=== PATIENT | female | born 1980 | race Caucasian/White ===

== ENCOUNTER 2017-10-11 03:46 | Emergency (ER) | payer SELFPAY ==
[~2017-10-11] VITALS: Ht 160 cm; Wt 74.8 kg
[2017-10-11 04:05] VITALS: BP 117/69
[2017-10-11] MEDS ORDERED: IBUPROFEN 600 MG TABLET. PO ONE ×2 (04:30→04:41)
--- NOTE | 2017-10-11 04:48 | PHYS DOC ---
Past History Past Medical History: Asthma Past Surgical History: Cholecystectomy, Other Alcohol Use: None Drug Use: None Adult General Chief Complaint Chief Complaint: FOOT INJURY PAIN HPI HPI Patient is a 36 year old female who presents with foot pain. The patient states she was moving furniture earlier tonight & dropped a couch on her left foot, now has pain in smallest toe. She has pain with weightbearing. No other injuries. Did not take medication prior to arrival. Review of Systems Review of Systems Constitutional: Denies fever or chills Respiratory: Denies shortness of breath Cardiovascular: Denies chest pain Musculoskeletal: Reports toe pain Integument: Denies rash Neurologic: Denies headache All other systems were reviewed and found to be within normal limits, except as documented in this note. Current Medications Current Medications Current Medications Medications (Trade) Dose Ordered Sig/Barbara Start Time Stop Time Status Last Admin Dose Admin Ibuprofen (Motrin) 600 mg 1X ONCE 10/11/17 04:30 10/11/17 04:31 UNV Allergies Allergies Allergies Coded Allergies Type Severity Reaction Last Updated Verified Penicillins Allergy Intermediate 04/10/16 Yes codeine Adverse Reaction Intermediate 04/10/16 Yes Physical Exam Physical Exam Constitutional: Well developed, well nourished, no acute distress, non-toxic appearance. HENT: Normocephalic, atraumatic, bilateral external ears normal, oropharynx moist, nose normal. Eyes: conjunctiva normal, no discharge. Cardiovascular: no edema. Lungs & Thorax: no respiratory distress. Abdomen: nondistended. Skin: Warm, dry, no erythema, no rash. Extremities: left foot no swelling or deformity, tenderness with palpation of 5th toe, otherwise no foot or ankle tenderness, normal ROM to ankle & able to move toes, dp/pt 2+, sensation intact to foot Neurologic: Alert and oriented X 3 EKG EKG [] Radiology/Procedures Radiology/Procedures XR L foot, 3 views: interpreted by me: no fracture or dislocation, no acute process.[] Course & Med Decision Making Course & Med Decision Making Pertinent Labs and Imaging studies reviewed. (See chart for details) The patient presents with toe injury. Gave ibuprofen. X-ray shows no fracture. Recommend rest, ice, elevation, ibuprofen. Follow up as needed with primary care. Come back for neurovascular compromise or otherwise worsening condition. Discharged home in stable condition. [] Dragon Disclaimer Dragon Disclaimer This electronic medical record was generated, in whole or in part, using a voice recognition dictation system. Departure Departure: Impression: Primary Impression: Toe contusion Disposition: 01 HOME, SELF-CARE Condition: STABLE Referrals: PCP,NO (PCP) Patient Instructions: Crush Injury, Fingers or Toes, [id number] Additional Instructions: You were seen in the emergency department today for toe injury. You did not have a fracture on x-ray. This appears to be bruising. Please rest, ice, elevate, take ibuprofen. Follow up with primary care physician for additional concerns. Problem Qualifiers Primary Impression: Toe contusion Encounter type: initial encounter Toe: lesser toe Damage to nail status: without damage Laterality: left Qualified Codes: S90.122A - Contusion of left lesser toe(s) without damage to nail, initial encounter FREDDY GUTIERREZ MD Oct 11, 2017 04:48
--- NOTE | 2017-10-11 07:55 | RAD ---
3 views left foot 10/11/2017 6:23 AM Indication: couch fell on toes, pain Comparison: None Findings: There is no fracture or dislocation identified. Articular surfaces are uninterrupted. Soft tissues are unremarkable. Impression: No evidence of acute osseous abnormality
== END 2017-10-11 04:53 | disposition home or self-care (01) ==
LOC: ER 03:46
DX: S90.122A Contusion of left lesser toe(s) without damage to nail, initial encounter (principal); J45.909 Unspecified asthma, uncomplicated; Z88.0 Allergy status to penicillin; Z88.5 Allergy status to narcotic agent; W20.8XXA Other cause of strike by thrown, projected or falling object, initial encounter; Y93.89 Activity, other specified; Y99.8 Other external cause status; Y92.89 Other specified places as the place of occurrence of the external cause
CPT/HCPCS: 73630; 99284

== ENCOUNTER 2017-10-20 13:04 | Emergency (ER) | payer SELFPAY ==
[~2017-10-20] VITALS: Ht 160 cm; Wt 79.0 kg
[2017-10-20 13:12] VITALS: BP 115/66
--- NOTE | 2017-10-20 14:32 | ED.ADGEN ---
Past History Past Medical History: Anxiety Past Surgical History: Cholecystectomy, , Hysterectomy Alcohol Use: Occasionally Drug Use: None Adult General Chief Complaint Chief Complaint Left hip pain HPI HPI Patient is a 36-year-old female presents with nontraumatic left hip pain for 1 week. Patient works as [employer] and is on her feet all day. She reports frequent lifting and bending. Also reports low back pain. No motor weakness or loss of sensation. No loss of bowel or bladder function. No history of kidney stones. Hip pain is worse with palpation and ambulation and rotation. No medications or therapy's taken prior to ED arrival. She has not seen a primary care provider prior to symptoms today.[] Review of Systems Review of Systems ROS as per HPI [] All other systems were reviewed and found to be within normal limits, except as documented in this note. Allergies Allergies Allergies Coded Allergies Type Severity Reaction Last Updated Verified Penicillins Allergy Intermediate 04/10/16 Yes codeine Adverse Reaction Intermediate 04/10/16 Yes Physical Exam Physical Exam Constitutional: Well developed, well nourished, no acute distress, non-toxic appearance. [] HENT: Normocephalic, atraumatic, bilateral external ears normal, oropharynx moist, no oral exudates, nose normal. [] Eyes: PERRLA, EOMI, conjunctiva normal, no discharge. [] Neck: Normal range of motion, no tenderness, supple, no stridor. [] Cardiovascular:Heart rate regular rhythm, no murmur [] Lungs & Thorax: Bilateral breath sounds clear to auscultation [] Abdomen: Bowel sounds normal, soft, no tenderness.(] Extremities: Left hip, lateral tenderness, pain palpation range of motion. No bruising or swelling appreciated. Antalgic gait. [] Neurologic: Alert and oriented X 3, lower extremities, no motor weakness or loss of sensation. [] Psychologic: Affect normal, judgement normal, mood normal. [] Current Patient Data Vital Signs Vital Signs Date Time Temp Pulse Resp B/P (MAP) Pulse Ox O2 Delivery O2 Flow Rate FiO2 10/20/17 13:12 98.3 64 16 100 Room Air EKG EKG [] Radiology/Procedures Radiology/Procedures [] Course & Med Decision Making Course & Med Decision Making Pertinent Labs and Imaging studies reviewed. (See chart for details) [Non-traumatic hip pain without neurologic compromise. Suspect bursitis. Recommend supportive care and PCP follow up. ] Final Impression Final Impression [1. Left hip pain] Problems: Meet Disclaimer Meet Disclaimer This electronic medical record was generated, in whole or in part, using a voice recognition dictation system. NIXON KNOTT DO Oct 20, 2017 14:32
== END 2017-10-20 13:45 | disposition home or self-care (01) ==
LOC: ER 13:04
DX: M25.552 Pain in left hip (principal); M54.5 Low back pain; F41.9 Anxiety disorder, unspecified; Z90.49 Acquired absence of other specified parts of digestive tract; Z98.890 Other specified postprocedural states; Z90.710 Acquired absence of both cervix and uterus; Z88.0 Allergy status to penicillin; Z88.5 Allergy status to narcotic agent
CPT/HCPCS: 99281

== ENCOUNTER 2018-02-25 06:10 | Emergency (ER) | payer OTHER ==
[~2018-02-25] VITALS: Ht 160 cm; Wt 79.0 kg
[2018-02-25 06:10] VITALS: BP 122/76
[2018-02-25] MEDS: HYDROcodone/APAP 5/325MG 1 TAB TABLET PO ONE (06:36)
[2018-02-25] MEDS ORDERED: TRAM-48 PO (06:59)
--- NOTE | 2018-02-25 06:59 | PHYS DOC ---
Past History Past Medical History: Anxiety Past Surgical History: Cholecystectomy, , Hysterectomy Smoking: Cigarettes Alcohol Use: Occasionally Drug Use: Marijuana Adult General Chief Complaint Chief Complaint: finger injury, headache HPI HPI 37-year-old right-handed female patient states she injured her left fifth finger last night when smacking her nephew and jammed her finger. Patient states she has more pain and ecchymosis and swelling of her finger this morning with informed range of motion. Patient denies focal neuro deficit and other injuries. Patient also complaining of global headache the last 5 days as a constant pain with nausea and photophobia without history of migraine headache. Patient states she took [id number] headache pain medication without improvement of her headache. Patient denies focal neuro deficit, fever and chills, neck pain, history of head injury or hypertension. Review of Systems Review of Systems Constitutional: Denies fever or chills [] Eyes: Denies change in visual acuity, redness, or eye pain , reports photophobia [] HENT: Denies nasal congestion or sore throat [] Respiratory: Denies cough or shortness of breath [] Cardiovascular: No additional information not addressed in HPI [] GI: Denies abdominal pain, vomiting, bloody stools or diarrhea , reports nausea [] : Denies dysuria or hematuria [] Musculoskeletal: Denies back pain, reports joint pain [] Integument: Denies rash or skin lesions [] Neurologic: Reports headache, denies focal weakness or sensory changes [] Endocrine: Denies polyuria or polydipsia [] All other systems were reviewed and found to be within normal limits, except as documented in this note. Current Medications Current Medications Current Medications Medications (Trade) Dose Ordered Sig/Barbara Start Time Stop Time Status Last Admin Dose Admin Acetaminophen/ Hydrocodone Bitart (Lortab 5/325) 1 tab 1X ONCE 02/25/18 06:45 02/25/18 06:46 DC 02/25/18 06:36 1 TAB Allergies Allergies Allergies Coded Allergies Type Severity Reaction Last Updated Verified Penicillins Allergy Intermediate 04/10/16 Yes codeine Adverse Reaction Intermediate 04/10/16 Yes Physical Exam Physical Exam Constitutional: Well developed, well nourished, mild distress, non-toxic appearance. [] HENT: Normocephalic, atraumatic, bilateral external ears normal, oropharynx moist, no oral exudates, nose normal. [] Eyes: PERRLA, EOMI, conjunctiva normal, no discharge. [] Neck: Normal range of motion, no tenderness, supple, no stridor. [] Cardiovascular:Heart rate regular rhythm, no murmur [] Lungs & Thorax: Bilateral breath sounds clear to auscultation [] Abdomen: Bowel sounds normal, soft, no tenderness, no masses, no pulsatile masses. [] Skin: Warm, dry, no erythema, no rash. [] Back: No tenderness, no CVA tenderness. [] Extremities: Left fifth finger with contusion and edema and tenderness without deformity or neurovascular deficit Neurologic: Alert and oriented X 3, normal motor function, normal sensory function, no focal deficits noted. [] Psychologic: Affect normal, judgement normal, mood normal. [] Current Patient Data Vital Signs Vital Signs Date Time Temp Pulse Resp B/P (MAP) Pulse Ox O2 Delivery O2 Flow Rate FiO2 02/25/18 06:36 20 98 Room Air 02/25/18 06:10 97.8 82 EKG EKG [] Radiology/Procedures Radiology/Procedures [] [place] [address] IMAGING REPORT Signed PATIENT: KWAME KAPLAN ACCOUNT: [id number] : 1980 LOCATION: ER AGE: 37 SEX: F EXAM [id number] STATUS: DEP ER ORD. PHYSICIAN: ALEJO FULLER MD REASON: fifth finger injury PROCEDURE: FINGER(S) LEFT; HAND LEFT 3V Left little finger, 3 views, 02/25/2018: History: Injury No fracture or dislocation is identified. The soft tissues are unremarkable. IMPRESSION: No significant abnormality is detected. Left hand, 3 views, 02/25/2018: No fracture or dislocation is identified. The soft tissues are unremarkable. IMPRESSION: No acute left hand abnormality is detected. DICTATED AND SIGNED BY: JUDE RAMÍREZ MD DATE: 02/25/18 0704 CC: ALEJO FULLER MD; PCP,NO ~ Course & Med Decision Making Course & Med Decision Making Pertinent Imaging studies reviewed. (See chart for details) Laceration of patient in ER showed 37-year-old female patient with injury to left finger with contusion of finger without fracture x-ray. Patient also complaining of headache with unremarkable neuro exam. Patient had [place] with improvement of her condition. Aluminium foam splint was applied by ER nurse. Dragon Disclaimer Dragon Disclaimer This electronic medical record was generated, in whole or in part, using a voice recognition dictation system. Departure Departure: Impression: Primary Impression: Contusion of finger, left Additional Impression: Headache Disposition: HOME, SELF-CARE (At 0658) Condition: IMPROVED Referrals: PCP,NO (PCP) Patient Instructions: Contusion, General Headache Without Cause Additional Instructions: Drink plenty of liquids Follow-up with your primary care physician in 3-5 days Return to ER if not getting better Scripts Tramadol Hcl (ULTRAM) 50 Mg Tablet 50 MG PO PRN Q6HRS Y for PAIN for 14 Days, TAB Prov: ALEJO FULLER MD 02/25/18 Problem Qualifiers ALEJO FULLER MD Feb 25, 2018 06:59
--- NOTE | 2018-02-25 07:09 | RAD ---
Left little finger, 3 views, 02/25/2018: History: Injury No fracture or dislocation is identified. The soft tissues are unremarkable. IMPRESSION: No significant abnormality is detected. Left hand, 3 views, 02/25/2018: No fracture or dislocation is identified. The soft tissues are unremarkable. IMPRESSION: No acute left hand abnormality is detected.
== END 2018-02-25 07:01 | disposition home or self-care (01) ==
LOC: ER 06:10
DX: S60.052A Contusion of left little finger without damage to nail, initial encounter (principal); R51 Headache; F41.9 Anxiety disorder, unspecified; F17.210 Nicotine dependence, cigarettes, uncomplicated; F12.10 Cannabis abuse, uncomplicated; Z88.0 Allergy status to penicillin; Z88.5 Allergy status to narcotic agent; W23.0XXA Caught, crushed, jammed, or pinched between moving objects, initial encounter; Y93.89 Activity, other specified; Y99.8 Other external cause status; Y92.89 Other specified places as the place of occurrence of the external cause
CPT/HCPCS: 29130; 73130; 73140; 99284

== ENCOUNTER 2018-05-01 22:03 | Emergency (ER) | payer OTHER ==
[~2018-05-01] VITALS: Ht 160 cm; Wt 79.0 kg
[2018-05-01 22:03] VITALS: BP 116/67
[~2018-05-01 22:03] MED LIST: TRAM-48 PO
[2018-05-01] MEDS ORDERED: PERM60CR11 TP (22:16)
--- NOTE | 2018-05-01 22:17 | PHYS DOC ---
Past History Past Medical History: Anxiety Past Surgical History: Cholecystectomy, , Hysterectomy Smoking: Cigarettes Alcohol Use: Occasionally Drug Use: Marijuana Adult General Chief Complaint Chief Complaint: SKIN RASH/ABSCESS HPI HPI 37-year-old female presents with round papular type rash that is itchy on her legs and trunk. She states is been ongoing for the last few days. He also has a similar rash.[] Review of Systems Review of Systems Review of systems is as above otherwise unremarkable Allergies Allergies Allergies Coded Allergies Type Severity Reaction Last Updated Verified Penicillins Allergy Intermediate 04/10/16 Yes codeine Adverse Reaction Intermediate 04/10/16 Yes Physical Exam Physical Exam Constitutional: Well developed, well nourished, no acute distress, non-toxic appearance. [] HENT: Normocephalic, atraumatic, bilateral external ears normal, oropharynx moist, no oral exudates, nose normal. [] Abdomen: Bowel sounds normal, soft, no tenderness, no masses, no pulsatile masses. [] Skin: Small linear papular rash consistent with scabies on his leg and trunk. [ ] Back: No tenderness, no CVA tenderness. [] Extremities: No tenderness, no cyanosis, no clubbing, ROM intact, no edema. [] Neurologic: Alert and oriented X 3, normal motor function, normal sensory function, no focal deficits noted. [] Psychologic: Affect normal, judgement normal, mood normal. [] EKG EKG [] Radiology/Procedures Radiology/Procedures [] Course & Med Decision Making Course & Med Decision Making Pertinent Labs and Imaging studies reviewed. (See chart for details) [] Dragon Disclaimer Dragon Disclaimer This electronic medical record was generated, in whole or in part, using a voice recognition dictation system. Departure Departure: Impression: Primary Impression: Scabies Disposition: HOME, SELF-CARE Condition: STABLE Referrals: PCP,NO (PCP) Patient Instructions: Scabies Scripts Permethrin (ELIMITE) 60 Gm Cream..g. 60 GM TP 1X, #1 EACH Prov: SUSHILA JOSHI DO 05/01/18 SUSHILA JOSHI DO May 01, 2018 22:17
== END 2018-05-01 22:21 | disposition home or self-care (01) ==
LOC: ER 22:03
DX: B86 Scabies (principal); F17.210 Nicotine dependence, cigarettes, uncomplicated; Z88.0 Allergy status to penicillin; Z88.5 Allergy status to narcotic agent
CPT/HCPCS: 99282

== ENCOUNTER 2018-07-13 09:53 | Emergency (ER) | payer OTHER ==
[~2018-07-13] VITALS: Ht 160 cm; Wt 79.0 kg
[~2018-07-13 09:53] MED LIST changes: +PERM60CR11 TP
[2018-07-13 09:57] VITALS: BP 109/62
--- NOTE | 2018-07-13 10:18 | EKG ---
[address] [address] Test Date: 2018-07-13 Test Time: 10:16:48 Pat Name: KWAME KAPLAN Department: Room: Gender: F Gut Dropper: : 1980 Requested By: RICKIE WHITE Order Number: [id number] Reading MD: Nate Gar MD Measurements Intervals Dana Rate: 78 P: 34 MT: 158 QRS: 44 QRSD: 76 T: 36 QT: 376 QTc: 432 Interpretive Statements SINUS RHYTHM Electronically Signed On 07-14-2018 10:06:26 CDT by Nate Gar MD
[2018-07-13] MEDS ORDERED: CYCLOBENZAPRINE 10 MG TABLET. PO ONE (10:45)
[2018-07-13] MEDS ORDERED: IBUPROFEN 400 MG TABLET. PO ONE (10:45)
--- NOTE | 2018-07-13 10:56 | RAD ---
CT cervical spine without contrast: Reason for examination: Neck pain for one day with right arm numbness. No known injury. Helical images were obtained through the cervical spine from skull base through the thoracic apices with no contrast administered. Reconstruction was performed in sagittal and coronal plane. Exposure: One or more of the following individualized dose reduction techniques were utilized for this examination: 1. Automated exposure control 2. Adjustment of the mA and/or kV according to patient size 3. Use of iterative reconstruction technique. The C1 ring is intact. The odontoid process is intact and normally centered between the lateral masses of C1. The vertebral bodies of the cervical spine are normally aligned anteriorly and posteriorly. No acute fracture or subluxation is seen. The posterior elements are intact. The intervertebral discs are maintained. Prevertebral soft tissues are normal. No spinal stenosis is evident. IMPRESSION: No abnormality seen in the cervical spine. If clinical concern persists, MRI examination should be considered. Electronically signed by: Shauna Gudino MD (07/13/2018 10:53 AM) [facility]
--- NOTE | 2018-07-13 11:07 | PHYS DOC ---
Past History Past Medical History: Asthma Past Surgical History: Cholecystectomy, , Hysterectomy, Tubal ligation Smoking: Cigarettes Alcohol Use: Rarely Drug Use: Marijuana Adult General Chief Complaint Chief Complaint: Neck Pain [facility] HPI Patient is a 37 year old female who presents with complaint of lower neck pain with radiation of pain and numbness to the right arm including all 4 for index fingers but sparing the thumb. Patient states it started at 4:30 this morning and denies any trauma. Patient denies any headache, chest pain shortness of breath. Patient also says she has some muscular tension and pain in the upper back area. Patient denies coughing or any prodromal viral illness. Patient has no other acute complaints at this time. Review of Systems Review of Systems Constitutional: Denies fever or chills [] Eyes: Denies change in visual acuity, redness, or eye pain [] HENT: Denies nasal congestion or sore throat []positive for neck pain Respiratory: Denies cough or shortness of breath [] Cardiovascular: No additional information not addressed in HPI [] GI: Denies abdominal pain, nausea, vomiting, bloody stools or diarrhea [] : Denies dysuria or hematuria [] Musculoskeletal: Denies back pain or joint pain [] Integument: Denies rash or skin lesions [] Neurologic: Denies headache, focal weakness positive for right arm and finger sensory changes [] Endocrine: Denies polyuria or polydipsia [] All other systems were reviewed and found to be within normal limits, except as documented in this note. Current Medications Current Medications Current Medications Medications (Trade) Dose Ordered Sig/Barbara Start Time Stop Time Status Last Admin Dose Admin Cyclobenzaprine HCl (Flexeril) 10 mg 1X ONCE 07/13/18 10:45 07/13/18 10:46 DC 07/13/18 10:34 10 MG Ibuprofen (Motrin) 800 mg 1X ONCE 07/13/18 10:45 07/13/18 10:46 DC 07/13/18 10:34 800 MG Allergies Allergies Allergies Coded Allergies Type Severity Reaction Last Updated Verified Penicillins Allergy Intermediate 04/10/16 Yes tramadol Allergy Unknown 07/13/18 Yes codeine Adverse Reaction Intermediate 04/10/16 Yes Physical Exam Physical Exam Constitutional: Well developed, well nourished, no acute distress, non-toxic appearance. [] HENT: Normocephalic, atraumatic, bilateral external ears normal, oropharynx moist, no oral exudates, nose normal. [] Eyes: PERRLA, EOMI, conjunctiva normal, no discharge. [] Neck: Normal range of motion, no tenderness, supple, no stridor. [] Cardiovascular:Heart rate regular rhythm, no murmur [] Lungs & Thorax: Bilateral breath sounds clear to auscultation [] Abdomen: Bowel sounds normal, soft, no tenderness, no masses, no pulsatile masses. [] Skin: Warm, dry, no erythema, no rash. [] Back: No tenderness, no CVA tenderness. [] Extremities: No tenderness, no cyanosis, no clubbing, ROM intact, no edema. [] Neurologic: Alert and oriented X 3, normal motor function, normal sensory function, no focal deficits noted. [] Psychologic: Affect normal, judgement normal, mood normal. [] Current Patient Data Vital Signs Vital Signs Date Time Temp Pulse Resp B/P (MAP) Pulse Ox O2 Delivery O2 Flow Rate FiO2 07/13/18 09:57 98.1 84 16 93 Room Air EKG EKG NSR at 78[] Radiology/Procedures Radiology/Procedures [address] [address] IMAGING REPORT Signed PATIENT: KWAME KAPLAN ACCOUNT: [id number] : 1980 LOCATION: ER AGE: 37 SEX: F EXAM STATUS: PRE ER ORD. PHYSICIAN: RICKIE WHITE MD REASON: pain PROCEDURE: CT CERVICAL SPINE WO CONTRAST CT cervical spine without contrast: Reason for examination: Neck pain for one day with right arm numbness. No known injury. Helical images were obtained through the cervical spine from skull base through the thoracic apices with no contrast administered. Reconstruction was performed in sagittal and coronal plane. Exposure: One or more of the following individualized dose reduction techniques were utilized for this examination: 1. Automated exposure control 2. Adjustment of the mA and/or kV according to patient size 3. Use of iterative reconstruction technique. The C1 ring is intact. The odontoid process is intact and normally centered between the lateral masses of C1. The vertebral bodies of the cervical spine are normally aligned anteriorly and posteriorly. No acute fracture or subluxation is seen. The posterior elements are intact. The intervertebral discs are maintained. Prevertebral soft tissues are normal. No spinal stenosis is evident. IMPRESSION: No abnormality seen in the cervical spine. If clinical concern persists, MRI examination should be considered. Electronically signed by: Shauna Palma MD (07/13/2018 10:53 AM) [facility] DICTATED AND SIGNED BY: SHAUNA PALMA MD DATE: 07/13/18 1046 CC: RICKIE WHITE MD; KAVITHA KING MD ~ [] Course & Med Decision Making Course & Med Decision Making Pertinent Labs and Imaging studies reviewed. (See chart for details) [] Dragon Disclaimer Dragon Disclaimer This electronic medical record was generated, in whole or in part, using a voice recognition dictation system. Departure Departure: Impression: Primary Impression: Neck pain Additional Impressions: Neuropathy Musculoskeletal pain Disposition: HOME, SELF-CARE Condition: STABLE Referrals: KAVITHA KING MD (PCP) Scripts Ibuprofen (IBUPROFEN) 800 Mg Tablet 1 TAB PO TID, #30 TAB Prov: RICKIE WHITE MD 07/13/18 Problem Qualifiers RICKIE WHITE MD Jul 13, 2018 11:07
[2018-07-13] MEDS ORDERED: IBUP800T19 PO (11:09)
== END 2018-07-13 11:18 | disposition home or self-care (01) ==
LOC: ER 09:53
DX: M54.2 Cervicalgia (principal); M54.6 Pain in thoracic spine; G62.9 Polyneuropathy, unspecified; J45.909 Unspecified asthma, uncomplicated; F17.210 Nicotine dependence, cigarettes, uncomplicated; Z90.49 Acquired absence of other specified parts of digestive tract; Z90.89 Acquired absence of other organs; Z98.51 Tubal ligation status; Z98.890 Other specified postprocedural states; Z88.0 Allergy status to penicillin; Z88.6 Allergy status to analgesic agent; Z88.5 Allergy status to narcotic agent
CPT/HCPCS: 72125; 93005; 99284-25

== ENCOUNTER 2018-08-23 22:43 | Emergency (ER) | payer OTHER ==
[~2018-08-23] VITALS: Ht 160 cm; Wt 72.6 kg
[~2018-08-23 22:43] MED LIST changes: +IBUP800T19 PO
--- NOTE | 2018-08-23 22:52 | ED.ADGEN ---
Past History Past Medical History: Asthma Past Surgical History: Cholecystectomy, , Hysterectomy, Tubal ligation Smoking: Cigarettes Alcohol Use: Rarely Drug Use: Marijuana Adult General Chief Complaint Chief Complaint ". I been sick about as long as my sister...coughing.. I ve even cut down on my smoking..." HPI HPI Patient is a 37 year old female who presents with above hx and complaints of wheezing and coughing. Recently exposed to sister who was diagnosed with bronchitis. No recent travel or sick. No history immunosuppression. Patient does smoke marijuana and tobacco. Normally follows with Dr. Phillips. Review of Systems Review of Systems Constitutional: Denies fever or chills [] Eyes: Denies change in visual acuity, redness, or eye pain [] HENT: Denies nasal congestion or sore throat [] Respiratory: History of cough and wheezing Cardiovascular: No additional information not addressed in HPI [] GI: Denies abdominal pain, nausea, vomiting, bloody stools or diarrhea [] : Denies dysuria or hematuria [] Musculoskeletal: Denies back pain or joint pain [] Integument: Denies rash or skin lesions [] Neurologic: Denies headache, focal weakness or sensory changes [] Endocrine: Denies polyuria or polydipsia [] All other systems were reviewed and found to be within normal limits, except as documented in this note. Family History Family History Sr. recently diagnosed with bronchitis Current Medications Current Medications Current Medications Medications (Trade) Dose Ordered Sig/Barbara Start Time Stop Time Status Last Admin Dose Admin Albuterol Sulfate (Ventolin Hfa Inhaler) 2 puff 1X ONCE 08/23/18 23:30 08/23/18 23:32 DC 08/23/18 23:41 2 PUFF Azithromycin (Zithromax) 500 mg 1X ONCE 08/23/18 23:45 08/23/18 23:46 DC 08/23/18 23:40 500 MG Prednisone (Prednisone) 60 mg 1X ONCE 08/23/18 23:30 08/23/18 23:32 DC 08/23/18 23:41 60 MG Allergies Allergies Allergies Coded Allergies Type Severity Reaction Last Updated Verified Penicillins Allergy Intermediate 04/10/16 Yes tramadol Allergy Unknown 07/13/18 Yes codeine Adverse Reaction Intermediate 04/10/16 Yes Physical Exam Physical Exam Constitutional: Mild distress, non-toxic appearance. [] HENT: Normocephalic, atraumatic, bilateral external ears normal, oropharynx moist, no oral exudates, nose normal. [] Eyes: PERRLA, EOMI, conjunctiva normal, no discharge. [] Neck: Normal range of motion, no tenderness, supple, no stridor. [] Cardiovascular:Heart rate regular rhythm, no murmur [] Lungs & Thorax: Bilateral breath sounds at apexes scattered wheezes auscultation [] Abdomen: Bowel sounds normal, soft, no tenderness, no masses, no pulsatile masses. Obese. Old surgery scars. Skin: Warm, dry, no erythema, no rash. [] Back: No tenderness, no CVA tenderness. [] Extremities: No tenderness, no cyanosis, no clubbing, ROM intact, no edema. [] No cording appreciated Neurologic: Alert and oriented X 3, normal motor function, normal sensory function, no focal deficits noted. [] Psychologic: Affect normal, judgement normal, mood normal. [] Current Patient Data Vital Signs Vital Signs Date Time Temp Pulse Resp B/P (MAP) Pulse Ox O2 Delivery O2 Flow Rate FiO2 08/23/18 23:02 98.4 83 16 96 Room Air Lab Results Laboratory Tests Test 08/23/18 22:50 Urine Collection Type Unknown Urine Color Yellow Urine Clarity Hazy Urine pH 6.5 Urine Specific [place] 1.010 Urine Protein Neg (NEG-TRACE) Urine Glucose (UA) Neg mg/dL (NEG) Urine Ketones (Stick) Neg mg/dL (NEG) Urine Blood Neg (NEG) Urine Nitrite Pos (NEG) Urine Bilirubin Neg (NEG) Urine Urobilinogen Dipstick 0.2 mg/dL (0.2 mg/dL) Urine Leukocyte Esterase Neg (NEG) Urine RBC 0 /HPF (0-2) Urine WBC Occ /HPF (0-4) Urine Squamous Epithelial Cells Many /LPF Urine Bacteria Many /HPF (0-FEW) Urine Opiates Screen Neg (NEG) Urine Methadone Screen Neg (NEG) Urine Barbiturates Neg (NEG) Urine Phencyclidine Screen Neg (NEG) Urine Amphetamine/Methamphetamine Neg (NEG) Urine Benzodiazepines Screen Neg (NEG) Urine Cocaine Screen Neg (NEG) Urine Cannabinoids Screen Pos (NEG) Urine Ethyl Alcohol Neg (NEG) EKG EKG [] Radiology/Procedures Radiology/Procedures My interpretation chest x-ray shows no acute cardiopulmonary findings.[] Course & Med Decision Making Course & Med Decision Making Pertinent Labs and Imaging studies reviewed. (See chart for details). Patient uses MDI 2 puffs 4 times a day. Patient take prednisone 50 mg a day. Patient to take Zithromax 250 a day. Patient to stop smoking. Patient follow-up primary care. Benadryl 50 mg up 4 times day may be helpful for coughing and nasal drainage [] Final Impression Final Impression 1. Bronchitis- 2. Tobacco and marijuana use [] Dragon Disclaimer Dragon Disclaimer This electronic medical record was generated, in whole or in part, using a voice recognition dictation system. SONALI HAZEL MD Aug 23, 2018 22:52
[2018-08-23 23:02] VITALS: BP 161/93
[2018-08-23] MEDS ORDERED: ALBUTEROL SULFATE 8GM INHALER. INH ONE (23:30)
[2018-08-23] MEDS ORDERED: predniSONE 20 MG TABLET PO ONE (23:30)
[2018-08-23 23:37] LABS: BARBITURATES NEG (NEG); BENZODIAZEPINES NEG (NEG); CANNABINOIDS POS (NEG); COCAINE NEG (NEG); METHADONE NEG (NEG); OPIATES NEG (NEG); PHENCYCLIDINE NEG (NEG)
[2018-08-23 23:38] LABS: BACTERIA,URINE MANY /HPF (0-FEW); BILIRUBIN,URINE NEG (NEG); CLARITY,URINE HAZY; COLOR,URINE YELLOW; GLUCOSE,URINE NEG (NEG); NITRITE,URINE POS (NEG); RBC,URINE 0 /HPF (0-2); SQUAMOUS EPITHELIAL CELL,UR MANY /LPF; UROBILINOGEN,URINE 0.2 mg/dL (0.2 mg/dL); WBC,URINE OCC /HPF (0-4)
[2018-08-23 23:40] LABS: AMPHETAMINE/METHAMPHETAMINE NEG (NEG)
[2018-08-23] MEDS ORDERED: PRED50TA PO (23:40)
[2018-08-23] MEDS ORDERED: AZIT250T PO (23:40)
[2018-08-23] MEDS ORDERED: AZITHROMYCIN 250 MG TABLET. PO ONE (23:45)
--- NOTE | 2018-08-24 08:37 | RAD ---
Chest, PA and Lateral: Technique: PA and lateral views of the chest were obtained. History: Cough, chest pain. Comparison: None. Findings: The heart and pulmonary vasculature appear within normal limits. Minimal prominent appearing bilateral interstitial lung markings.. The pleural margins are clear. Impression: Minimal prominent appearing bilateral interstitial lung markings could be mild bronchitis.. Electronically signed by: Theron Rod MD (08/24/2018 8:33 AM) [facility]
== END 2018-08-23 23:45 | disposition home or self-care (01) ==
LOC: ER 22:43
DX: J40 Bronchitis, not specified as acute or chronic (principal); F17.210 Nicotine dependence, cigarettes, uncomplicated; F12.10 Cannabis abuse, uncomplicated; J45.909 Unspecified asthma, uncomplicated; Z88.0 Allergy status to penicillin; Z88.6 Allergy status to analgesic agent; Z88.5 Allergy status to narcotic agent
CPT/HCPCS: 36415; 71046; 80307; 81001; 87086; 94640; 99285; J0456; J7512; J7613; G0479

== ENCOUNTER → 2018-09-02 | Outpatient (CLI) | payer OTHER ==
[2018-08-23 23:02] VITALS: BP 161/93
[~2018-09-02] MED LIST changes: +AZIT250T PO; +PRED50TA PO
--- NOTE | 2018-09-02 16:50 | RAD ---
EXAM: CHEST 2 VIEWS. HISTORY: Cough, shortness of breath. COMPARISON: 08/23/2018. FINDINGS: Frontal and lateral views of the chest are obtained. There are no confluent infiltrates. There is no pneumothorax or pleural effusion. The heart is not enlarged. Cholecystectomy clips are noted. IMPRESSION: 1. No confluent infiltrates. Electronically signed by: Terri Hebert MD (09/02/2018 4:47 PM) [facility]
== END | disposition home or self-care (01) ==
LOC: DXRAD 14:30
PROVIDERS: ATTEND Neuromusculoskeletal Medicine & OMM
DX: J44.1 Chronic obstructive pulmonary disease with (acute) exacerbation (principal); F17.200 Nicotine dependence, unspecified, uncomplicated; F12.90 Cannabis use, unspecified, uncomplicated
CPT/HCPCS: 71046

== ENCOUNTER 2019-07-26 23:31 | Emergency (ER) | payer SELFPAY ==
[~2019-07-26] VITALS: Ht 160 cm; Wt 79.0 kg
[2019-07-26 23:33] VITALS: BP 115/75
[2019-07-27] MEDS ORDERED: METO10TA81 PO (00:10)
[2019-07-27] MEDS ORDERED: MELO7.5T29 PO (00:10)
[2019-07-27] MEDS ORDERED: CLIN150C14 PO (00:10)
--- NOTE | 2019-07-27 00:10 | PHYS DOC ---
Past History Past Medical History: Asthma Past Surgical History: Cholecystectomy, , Hysterectomy Smoking: Cigarettes Alcohol Use: Rarely Drug Use: Marijuana Adult General Chief Complaint Chief Complaint: FACE PAIN HPI HPI Patient is a 38-year-old female presents complaining of right lower jaw pain for the past 3 days. It has been getting worse over time. No relief with Tylenol with codeine that she took prior to arrival. Also no relief with THC. Both hot and cold make it worse. Some subjective fever, no fever recorded at home. Symptoms are severe in nature[] Review of Systems Review of Systems Constitutional: Denies fever or chills [] Eyes: Denies change in visual acuity, redness, or eye pain [] HENT: Denies nasal congestion or sore throat, see history of present illness [] Respiratory: Denies cough or shortness of breath [] Cardiovascular: No chest pain or palpitations[] GI: Denies abdominal pain, nausea, vomiting, bloody stools or diarrhea [] : Denies dysuria or hematuria [] Musculoskeletal: Denies back pain or joint pain [] Integument: Denies rash or skin lesions [] Neurologic: Denies headache, focal weakness or sensory changes [] Endocrine: Denies polyuria or polydipsia [] All other systems were reviewed and found to be within normal limits, except as documented in this note. Current Medications Current Medications Current Medications Medications (Trade) Dose Ordered Sig/Barbara Start Time Stop Time Status Last Admin Dose Admin Clindamycin HCl (Cleocin) 300 mg 1X ONCE 07/27/19 00:15 07/27/19 00:16 Ketorolac Tromethamine (Toradol 30mg Vial) 30 mg 1X ONCE 07/27/19 00:15 07/27/19 00:16 Ondansetron HCl (Zofran Odt) 4 mg 1X ONCE 07/27/19 00:15 07/27/19 00:16 Allergies Allergies Allergies Coded Allergies Type Severity Reaction Last Updated Verified Penicillins Allergy Intermediate 04/10/16 Yes tramadol Allergy Unknown 07/13/18 Yes codeine Adverse Reaction Intermediate 04/10/16 Yes Physical Exam Physical Exam Constitutional: Well developed, well nourished, no acute distress, non-toxic appearance. [] HENT: Normocephalic, atraumatic, bilateral external ears normal, oropharynx moist, no oral exudates, nose normal. Her right side last tooth on the jaw has significant crack towards the posterior aspect. There is tenderness to percussion. No drainable abscess appreciated. No swelling of the floor of the mouth. Uvula is midline. [] Eyes: PERRLA, EOMI, conjunctiva normal, no discharge. [] Neck: Normal range of motion, no tenderness, supple, no stridor. No cervical lymphadenopathy[] Cardiovascular:Heart rate regular rhythm, no murmur [] Lungs & Thorax: Bilateral breath sounds clear to auscultation [] Abdomen: Not examined. [] Skin: Warm, dry, no erythema, no rash. [] Back: No tenderness, no CVA tenderness. [] Extremities: No tenderness, no cyanosis, no clubbing, ROM intact, no edema. [] Neurologic: Alert and oriented X 3, normal motor function, normal sensory function, no focal deficits noted. [] Psychologic: Affect normal, judgement normal, mood normal. [] Current Patient Data Vital Signs Vital Signs Date Time Temp Pulse Resp B/P (MAP) Pulse Ox O2 Delivery O2 Flow Rate FiO2 07/26/19 23:33 98.4 84 20 97 Room Air EKG EKG [] Radiology/Procedures Radiology/Procedures [] Course & Med Decision Making Course & Med Decision Making Pertinent Labs and Imaging studies reviewed. (See chart for details) ED course: Patient arrived, was placed in a chair, had an episode of vomiting. Discussion with the patient, she gets vomiting when she takes codeine and she took a friend's Tylenol with codeine earlier this evening for the discomfort. She is oral intake tolerant while in the emergency department. Discussed findings and plan with the patient who voiced understanding. All questions were answered. She was discharged in improved condition. Medical decision making: Patient appears to have a periapical abscess. No evidence of Damian exam showed. No evidence of a drainable abscess on exam. We will treat with pain medicine, antiemetics, and antibiotics that she is not allergic to.[] Dragon Disclaimer Dragon Disclaimer This electronic medical record was generated, in whole or in part, using a voice recognition dictation system. Departure Departure: Impression: Primary Impression: Dental abscess Disposition: 01 HOME, SELF-CARE Condition: IMPROVED Referrals: KAVITHA KING MD (PCP) Follow-up in 2 days Patient Instructions: Dental Abscess Additional Instructions: Follow-up with your primary doctor and dentist in 2 days. Take the medication as prescribed. Do not take any more Tylenol with codeine. Return to the ER if unable to tolerate liquids, or any other concerns. Scripts Clindamycin Hcl (CLINDAMYCIN HCL) 150 Mg Capsule 2 CAP PO QID for dental infection, #80 CAP Prov: FRANCA MENENDEZ DO 07/27/19 Metoclopramide Hcl (REGLAN) 10 Mg Tablet 10 MG PO QID for nausea and vomiting, #30 TAB Prov: FRANCA MENENDEZ DO 07/27/19 Meloxicam (MELOXICAM) 7.5 Mg Tablet 7.5 MG PO DAILY for PAIN, #20 TAB Prov: FRANCA MENENDEZ DO 07/27/19 FRANCA MENENDEZ DO Jul 27, 2019 00:10
[2019-07-27] MEDS ORDERED: KETOROLAC 30 MG/ML VIAL. IM ONE (00:15)
[2019-07-27] MEDS ORDERED: CLINDAMYCIN HCL 150 MG CAPSULE PO ONE (00:15)
[2019-07-27] MEDS ORDERED: ONDANSETRON ODT 4 MG TAB.RAPDIS PO ONE (00:15)
== END 2019-07-27 00:25 | disposition home or self-care (01) ==
LOC: ER 23:31
DX: K04.7 Periapical abscess without sinus (principal); J45.909 Unspecified asthma, uncomplicated; F17.210 Nicotine dependence, cigarettes, uncomplicated; Z88.0 Allergy status to penicillin; Z88.6 Allergy status to analgesic agent; Z88.5 Allergy status to narcotic agent
CPT/HCPCS: 96372; 99283; J1885; Q0162

== ENCOUNTER 2019-09-03 18:36 | Emergency (ER) | payer SELFPAY ==
[~2019-09-03] VITALS: Ht 160 cm; Wt 65.8 kg
[~2019-09-03 18:36] MED LIST changes: +CLIN150C14 PO; +MELO7.5T29 PO; +METO10TA81 PO
[2019-09-03 19:30] VITALS: BP 140/77
[2019-09-03] MEDS ORDERED: CEPH-264 PO (19:57)
--- NOTE | 2019-09-03 19:58 | PHYS DOC ---
Past History Past Medical History: Asthma Past Surgical History: Cholecystectomy, , Hysterectomy Smoking: Cigarettes Alcohol Use: Rarely Drug Use: Marijuana Adult General Chief Complaint Chief Complaint: BREAST PROBLEM HPI HPI Patient is a 38-year-old female presents to the emergency department for ev aluation. She states for the past 5 days, she has had some pain and a tender nodule on the lateral aspect of her left breast. She denies any trauma or injury. She is not or breast feeding. Palpation of the affected area worsens her pain. There are no other alleviating or exacerbating factors to her symptoms. Review of Systems Review of Systems Constitutional: Denies fever or chills [] GI: Denies abdominal pain, nausea, vomiting, bloody stools or diarrhea [] : Denies [] Allergies Allergies Allergies Coded Allergies Type Severity Reaction Last Updated Verified Penicillins Allergy Intermediate 04/10/16 Yes tramadol Allergy Unknown 07/13/18 Yes codeine Adverse Reaction Intermediate 04/10/16 Yes Physical Exam Physical Exam PHYSICAL EXAM: CONSTITUTIONAL: Well developed, well nourished HEAD: normocephalic, atraumatic EENT: PERRL, EOMI. Conjunctivae normal color, sclerae non-icteric; moist mucous membranes. NECK: Supple, non-tender; no meningismus. LUNGS: Lungs CTA, breathing even and unlabored. Normal air movement. HEART: Regular rate and rhythm, no murmur CHEST: No deformity; non-tender ABDOMEN: The abdomen is soft, and non-tender, no masses or bruits. EXTREM: Normal ROM; no deformity, no calf tenderness. Normal pulses palpable in all extremities. There is no pedal edema. SKIN: No rash; no diaphoresis NEURO: Alert; normal speech and cognition; CN's grossly intact; strength grossly intact without focal deficit. BACK: No CVA TTP. BREAST EXAM: Performed in the presence of ER nurse Anai, as supervisor steel division. There is a mildly tender nodule in the subcutaneous tissue/breast tissue over the left lateral breast, in the upper outer quadrant. There are no other definite palpable masses. The skin of the breast is normal. The remainder the breast tissue is nontender. EKG EKG [] Radiology/Procedures Radiology/Procedures [] Course & Med Decision Making Course & Med Decision Making Patient's condition remains stable. I discussed the uncertain etiology of her symptoms. Infection is a possibility but further evaluation is warranted to rule out the possibility of malignancy, and I stressed importance of close follow-up with her primary care provider, or DRYING MACHINE TENDER, who can follow up with the patient to help evaluate for the possibility of a more serious breast etiology. Return precautions were discussed in detail. Dragon Disclaimer Dragon Disclaimer This electronic medical record was generated, in whole or in part, using a voice recognition dictation system. Departure Departure: Impression: Primary Impression: Breast pain Additional Impression: Breast mass Disposition: HOME, SELF-CARE Condition: STABLE Referrals: KAVITHA KING MD (PCP) Patient Instructions: Breast Scintigraphy, Breast Tenderness Additional Instructions: Applying warm compresses to the affected area may help improve your symptoms. Ibuprofen 400-600 mg every 6 hours as needed for pain. Follow-up with your primary care provider as soon as possible, for further evaluation, and to undergo further evaluation to definitively exclude the possibility of malignancy or other serious etiology. Scripts Cephalexin (KEFLEX) 500 Mg Capsule 1 CAP PO QID for - for 7 Days, #28 CAP 0 Refills Prov: MARIS HARRISON MD 09/03/19 Problem Qualifiers MARIS HARRISON MD Sep 03, 2019 19:58
[2019-09-03] MEDS ORDERED: CEPHALEXIN 250 MG CAPSULE PO ONE (20:15)
[2019-09-03] MEDS ORDERED: ACETAMINOPHEN 325 MG TABLET PO ONE (20:15)
== END 2019-09-03 20:30 | disposition home or self-care (01) ==
LOC: ER 18:36
DX: N64.4 Mastodynia (principal); N63.21 Unspecified lump in the left breast, upper outer quadrant; J45.909 Unspecified asthma, uncomplicated; F17.210 Nicotine dependence, cigarettes, uncomplicated; Z90.49 Acquired absence of other specified parts of digestive tract; Z98.890 Other specified postprocedural states; Z90.710 Acquired absence of both cervix and uterus; Z88.0 Allergy status to penicillin; Z88.6 Allergy status to analgesic agent; Z88.5 Allergy status to narcotic agent
CPT/HCPCS: 99283

== ENCOUNTER 2019-09-22 22:08 | Emergency (ER) | payer SELFPAY ==
[~2019-09-22] VITALS: Ht 160 cm; Wt 79.0 kg
[~2019-09-22 22:08] MED LIST changes: +CEPH-264 PO
[2019-09-22 22:40] VITALS: BP 127/80
--- NOTE | 2019-09-22 22:47 | PHYS DOC ---
Past History Past Medical History: No Pertinent History, Asthma Past Surgical History: No Surgical History, Cholecystectomy, , Hysterectomy Smoking: Cigarettes Alcohol Use: Occasionally Drug Use: Marijuana Adult General Chief Complaint Chief Complaint: VAGINAL BLEEDING HPI HPI Patient is a 38 year old female who presents with complaint of vaginal bleeding. Patient states that she started having bleeding shortly after sexual intercourse with her boyfriend. She states that she had just finished receiving manual intercourse when her boyfriend with treatment his fingers from her vagina, noting blood on his fingers. She noted bleeding shortly thereafter. States the bleeding has decreased since onset. This took place approximately one hour prior to arrival. Patient does note pain in this area as well. Denies any abnormal discharge and denies any pelvic or abdominal pain. Had history of hysterectomy. Review of Systems Review of Systems Constitutional: Denies fever or chills [] Eyes: Denies change in visual acuity, redness, or eye pain [] HENT: Denies nasal congestion or sore throat [] Respiratory: Denies cough or shortness of breath [] Cardiovascular: Denies chest pain or edema[] GI: Denies abdominal pain, nausea, vomiting, bloody stools or diarrhea [] : Vaginal bleeding, vaginal pain[] Musculoskeletal: Denies back pain or joint pain [] Integument: Denies rash or skin lesions [] Neurologic: Denies headache, focal weakness or sensory changes [] All other systems were reviewed and found to be within normal limits, except as documented in this note. Allergies Allergies Allergies Coded Allergies Type Severity Reaction Last Updated Verified Penicillins Allergy Intermediate 04/10/16 Yes tramadol Allergy Unknown 07/13/18 Yes codeine Adverse Reaction Intermediate 04/10/16 Yes Physical Exam Physical Exam Constitutional: Alert, afebrile, no acute distress. [] HENT: Normocephalic, atraumatic, bilateral external ears normal, oropharynx moist, no oral exudates, nose normal. [] Eyes: PERRLA, EOMI, conjunctiva normal, no discharge. [] Neck: Normal range of motion, no tenderness, supple, no stridor. [] Cardiovascular:Heart rate regular rhythm, no murmur [] Lungs & Thorax: Bilateral breath sounds clear to auscultation [] Abdomen: Bowel sounds normal, soft, no tenderness, no masses, no pulsatile masses. : 5 mm superficial avulsion to the medial aspect of the labia minora with no active bleeding, no retained blood in vaginal canal, mild tenderness to pal pation along right labium minora, no purulent drainage[] Skin: Warm, dry, no erythema, no rash. [] Back: No tenderness, no CVA tenderness. [] Extremities: No tenderness, no cyanosis, no clubbing, ROM intact, no edema. [] Neurologic: Alert and oriented X 3, normal motor function, normal sensory f unction, no focal deficits noted. [] Current Patient Data Vital Signs Vital Signs Date Time Temp Pulse Resp B/P (MAP) Pulse Ox O2 Delivery O2 Flow Rate FiO2 09/22/19 22:40 98.4 96 20 99 Room Air Lab Results Laboratory Tests Test 09/22/19 22:20 Urine Collection Type Unknown Urine Color Yellow Urine Clarity Clear Urine pH 5.5 Urine Specific [place] >=1.030 Urine Protein 30 mg/dl Urine Glucose (UA) Neg mg/dL Urine Ketones (Stick) Neg mg/dL Urine Blood Large Urine Nitrite Neg Urine Bilirubin Neg Urine Urobilinogen Dipstick 0.2 mg/dL Urine Leukocyte Esterase Neg Urine RBC Occ /HPF Urine WBC Occ /HPF Urine Squamous Epithelial Cells Many /LPF Urine Bacteria Few /HPF Urine Test Negative WET PREP Final YEAST NONE SEEN TRICHOMONAS NONE SEEN CLUE CELLS CLUE CELLS PRESENT ALTERED GINO ALTERED GINO PRESENT SUGGESTIVE OF BACTERIAL VAGINOSIS WBCS OCCASIONAL RBCS NO RBCS SEEN SQUAMOUS EPS MODERATE EKG EKG Not performed[] Radiology/Procedures Radiology/Procedures Not performed[] Course & Med Decision Making Course & Med Decision Making Pertinent Labs and Imaging studies reviewed. (See chart for details) Patient had a noted mild superficial vaginal mucosal tear near the right labia minora which appears stated source of the bleeding. Patient informed that this would heal on its own but did recommend abstaining from any form of sexual intercourse until healing has completed itself which was explained to be in the next 5-7 days. Patient was found have evidence of bacterial vaginosis. Prescribed Flagyl 500 mg twice daily for the next 7 days for treatment. Recommended follow-up with primary doctor in 1 week for reevaluation and return to emergency department for any worsening symptoms. Patient was understanding and in agreement with treatment plan.[] Dragon Disclaimer Dragon Disclaimer This electronic medical record was generated, in whole or in part, using a voice recognition dictation system. Departure Departure: Impression: Primary Impression: Superficial injury of vagina without infection Additional Impression: Bacterial vaginosis Disposition: 01 HOME, SELF-CARE Condition: STABLE Referrals: KAVITHA KING MD (PCP) Patient Instructions: Bacterial Vaginosis Additional Instructions: Your examination showed a small tear to the lining of your vagina which is expected to heal on its own. Testing also showed evidence of bacterial vagin osis. Be sure to avoid any types of sexual intercourse or insertion of anything into your vagina until your injury has healed. This usually takes between 5-7 days. You'll be started on an antibiotic to take twice daily for the next 7 days for treatment of bacterial vaginosis. Follow-up with your primary doctor in 1 week for reevaluation. Return to the emergency department for any worsening symptoms. Scripts Metronidazole (FLAGYL) 500 Mg Tablet 1 TAB PO BID, #14 TAB Prov: ELIER TOSCANO MD 09/22/19 Problem Qualifiers Primary Impression: Superficial injury of vagina without infection Encounter type: initial encounter Qualified Codes: S30.95XA - Unspecified superficial injury of vagina and vulva, initial encounter ELIER TOSCANO MD Sep 22, 2019 22:47
[2019-09-22 23:20] LABS: COLOR,URINE YELLOW
[2019-09-22 23:21] LABS: BACTERIA,URINE FEW /HPF (0-FEW); BILIRUBIN,URINE NEG (NEG); CLARITY,URINE CLEAR; GLUCOSE,URINE NEG (NEG); NITRITE,URINE NEG (NEG); RBC,URINE OCC /HPF (0-2); SQUAMOUS EPITHELIAL CELL,UR MANY /LPF; UROBILINOGEN,URINE 0.2 mg/dL (0.2 mg/dL); WBC,URINE OCC /HPF (0-4)
[2019-09-22] MEDS ORDERED: METR500T PO (23:47)
[2019-09-22 23:55] LABS: U PREG PATIENT NEGATIVE (NEG)
== END 2019-09-22 23:55 | disposition home or self-care (01) ==
LOC: ER 22:08
DX: S30.95XA Unspecified superficial injury of vagina and vulva, initial encounter (principal); N76.0 Acute vaginitis; B96.89 Other specified bacterial agents as the cause of diseases classified elsewhere; J45.909 Unspecified asthma, uncomplicated; F17.210 Nicotine dependence, cigarettes, uncomplicated; Z88.0 Allergy status to penicillin; Z88.5 Allergy status to narcotic agent; Z88.6 Allergy status to analgesic agent; X58.XXXA Exposure to other specified factors, initial encounter; Y93.89 Activity, other specified; Y92.89 Other specified places as the place of occurrence of the external cause; Y99.8 Other external cause status
CPT/HCPCS: 81001; 81025; 87491; 87591; 99284; Q0111

== ENCOUNTER 2019-10-13 01:42 | Emergency (ER) | payer SELFPAY ==
[~2019-10-13] VITALS: Ht 160 cm; Wt 64.4 kg
[~2019-10-13 01:42] MED LIST changes: +METR500T PO
--- NOTE | 2019-10-13 01:48 | PHYS DOC ---
Past History Past Medical History: No Pertinent History, Asthma Past Surgical History: No Surgical History, Cholecystectomy, , Hysterectomy Smoking: Cigarettes Alcohol Use: Occasionally Drug Use: Marijuana Adult General Chief Complaint Chief Complaint: ".. I was getting ready for bed... and slipped on some water.. from a ice cube in the kitchen.... and fell hard on the Lt shoulder and elbow...." HPI HPI Patient is a 38 year old female who presents with above hx and complaints slipping on water which caused her fall on her left shoulder and elbow. Patient localizes pain to left shoulder blade and shoulder. Does have deltoid sensation. Does have distal sensation in hand equal to her right hand. Refill and pulses left wrist are equal to right wrist Patient is right-hand dominant. Patient also has edema and pain in left elbow, increased pain with pronation and supination and flexion. Patient denies other injury. Patient denies any history immunosuppression. Pt. does not use anticoagulants. Review of Systems Review of Systems Constitutional: Denies fever or chills [] Eyes: Denies change in visual acuity, redness, or eye pain [] HENT: Denies nasal congestion or sore throat [] Respiratory: Denies cough or shortness of breath [] Cardiovascular: No additional information not addressed in HPI [] GI: Denies abdominal pain, nausea, vomiting, bloody stools or diarrhea [] : Denies dysuria or hematuria [] Musculoskeletal: Denies back pain or joint pain []except complaints of left shoulder and elbow pain as per history of present illness Integument: Denies rash or skin lesions [] Neurologic: Denies headache, focal weakness or sensory changes [] Endocrine: Denies polyuria or polydipsia [] All other systems were reviewed and found to be within normal limits, except as documented in this note. Family History Family History Noncontributory Current Medications Current Medications See nursing for home meds Allergies Allergies Allergies Coded Allergies Type Severity Reaction Last Updated Verified Penicillins Allergy Intermediate 04/10/16 Yes tramadol Allergy Unknown 07/13/18 Yes codeine Adverse Reaction Intermediate 04/10/16 Yes Physical Exam Physical Exam Constitutional: in acute distress, non-toxic appearance. [] HENT: Normocephalic, atraumatic, bilateral external ears normal, oropharynx moist, no oral exudates, nose normal. Poor dentition Eyes: PERRLA, EOMI, conjunctiva normal, no discharge. [] Wears glasses Neck: Normal range of motion, no tenderness, supple, no stridor. [] Cardiovascular:Heart rate regular rhythm, no murmur [] Lungs & Thorax: Bilateral breath sounds apex with scattered wheezes on auscultation . The []anterior to posterior and side to side chest compression elicits no pain Abdomen: Bowel sounds normal, soft, no tenderness, no masses, no pulsatile masses. []Old surgery scars Skin: Warm, dry, no erythema, no rash. [] Back: No tenderness, no CVA tenderness. [] Extremities: No tenderness, no cyanosis, no clubbing, ROM intact, no edema. [] Except findings and left elbow and shoulder as per history of present illness Neurologic: Alert and oriented X 3, normal motor function, normal sensory function, no focal deficits noted. [] Psychologic: Affect anxious and tearful, judgement normal, mood normal. [] EKG EKG [] Radiology/Procedures Radiology/Procedures [][place] [address] IMAGING REPORT Signed PATIENT: KWAME KAPLAN ACCOUNT: [id number] : 1980 LOCATION: ER AGE: 38 SEX: F EXAM STATUS: REG ER ORD. PHYSICIAN: SONALI HAZEL MD REASON: fall PROCEDURE: CHEST PA & LATERAL Indication: Fall. TECHNIQUE: 2 views of the chest COMPARISON: None FINDINGS: Heart is normal in size. Lungs are clear. No pneumothorax or pleural effusion. Visualized bony thorax within normal limits. IMPRESSION: No acute pulmonary process. INDICATION: Fall TECHNIQUE: 3 views of the left shoulder and 3 views of the left elbow COMPARISON: None Findings/impression: No acute fracture or dislocation. Electronically signed by: Isai Mcdonald DO (10/13/2019 2:49 AM) [facility] DICTATED AND SIGNED BY: ISAI MCDONALD DO DATE: 10/13/19 0249 CC: SONALI HAZEL MD; KAVITHA KING MD ~ Course & Med Decision Making Course & Med Decision Making Pertinent Labs and Imaging studies reviewed. (See chart for details) Distal neurovascular intact post sling. Ice, elevation, splint, sling, and follow-up with primary care and orthro. Tylenol and Ibuprofen for pain. Marked pain take Vicoprofen up 4 x day. Take arm out of sling 4 x day and do passive range of motion. Return if any concerns. [] Dragon Disclaimer Dragon Disclaimer This electronic medical record was generated, in whole or in part, using a voice recognition dictation system. Departure Departure: Disposition: 01 HOME/RESIDENCE PRIOR TO ADM Condition: STABLE Referrals: KAVITHA KING MD (PCP) Scripts Hydrocodone/Ibuprofen (HYDROCODONE-IBUPROFEN 7.5-200 ) 1 Each Tablet 1 TAB PO PRN Q6HRS PRN for PAIN, #30 TAB 0 Refills Prov: SONALI HAZEL MD 10/13/19 Meet Disclaimer This chart was dictated in whole or in part using Voice Recognition software in a busy, high-work load, and often noisy Emergency Department environment. It may contain unintended and wholly unrecognized errors or omissions. Dragon Disclaimer This chart was dictated in whole or in part using Voice Recognition software in a busy, high-work load, and often noisy Emergency Department environment. It may contain unintended and wholly unrecognized errors or omissions. SONALI HAZEL MD Oct 13, 2019 01:48
[2019-10-13] MEDS ORDERED: HYDROcodon/IBUPROFEN 7.5/200MG 1 TAB TABLET PO ONE (02:15)
--- NOTE | 2019-10-13 02:52 | RAD ---
Indication: Fall. TECHNIQUE: 2 views of the chest COMPARISON: None FINDINGS: Heart is normal in size. Lungs are clear. No pneumothorax or pleural effusion. Visualized bony thorax within normal limits. IMPRESSION: No acute pulmonary process. INDICATION: Fall TECHNIQUE: 3 views of the left shoulder and 3 views of the left elbow COMPARISON: None Findings/impression: No acute fracture or dislocation. Electronically signed by: Isai Mcdonald DO (10/13/2019 2:49 AM) [facility]
[2019-10-13] MEDS ORDERED: HYDR-1179 PO (02:59)
[2019-10-15 03:00] VITALS: BP 139/78
== END 2019-10-13 03:15 | disposition home or self-care (01) ==
LOC: ER 01:42
DX: M25.512 Pain in left shoulder (principal); M25.522 Pain in left elbow; G89.11 Acute pain due to trauma; J45.909 Unspecified asthma, uncomplicated; F17.210 Nicotine dependence, cigarettes, uncomplicated; Z88.0 Allergy status to penicillin; Z88.6 Allergy status to analgesic agent; Z88.5 Allergy status to narcotic agent; W01.0XXA Fall on same level from slipping, tripping and stumbling without subsequent striking against object, initial encounter; Y93.89 Activity, other specified; Y92.89 Other specified places as the place of occurrence of the external cause; Y99.8 Other external cause status
CPT/HCPCS: 71046; 73030; 73080; 99284

== ENCOUNTER 2019-11-17 21:36 | Emergency (ER) | payer SELFPAY ==
[~2019-11-17] VITALS: Ht 160 cm; Wt 62.1 kg
[~2019-11-17 21:36] MED LIST changes: +HYDR-1179 PO
[2019-11-17 21:47] VITALS: BP 121/82
--- NOTE | 2019-11-17 22:45 | RAD ---
EXAM: 3 Views Left Shoulder DATE: 11/17/2019 10:26 PM INDICATION: Left shoulder pain COMPARISON: 10/13/2019 FINDINGS: There is no evidence for acute fracture or dislocation. AC joint is congruent. Humeral head is not high riding. IMPRESSION: 1. No acute fracture or dislocation. Electronically signed by: Ezequiel Robbins MD (11/17/2019 10:42 PM) [facility]
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
[2019-11-17] MEDS ORDERED: HYDR-3165 PO (23:08)
[2019-11-17] MEDS ORDERED: PRED-220 PO (23:08)
[2019-11-17] MEDS ORDERED: predniSONE 20 MG TABLET PO ONE (23:30)
[2019-11-17] MEDS ORDERED: HYDROcodone/APAP 5/325MG 1 TAB TABLET PO ONE (23:30)
--- NOTE | 2019-11-18 00:40 | RAD ---
Exam: Cervical spine 3 views INDICATION: Tingling in fingers of left hand TECHNIQUE: Frontal, lateral and odontoid views of the cervical spine Comparisons: CT cervical spine 07/13/2019 FINDINGS: Straightening of cervical spine which may positional. Vertebral body heights are well-maintained. No significant degenerative disc space narrowing or facet arthropathy is identified. Visualized paraspinal soft tissues are unremarkable. IMPRESSION: Straightening of cervical spine, may be positional versus muscle spasm. Electronically signed by: Ellen Rodriguez MD (11/18/2019 12:37 AM) [facility]
== END 2019-11-17 23:52 | disposition home or self-care (01) ==
LOC: ER 21:36
DX: M25.512 Pain in left shoulder (principal); J44.9 Chronic obstructive pulmonary disease, unspecified; F17.210 Nicotine dependence, cigarettes, uncomplicated; Z88.0 Allergy status to penicillin; Z88.6 Allergy status to analgesic agent; Z88.5 Allergy status to narcotic agent
CPT/HCPCS: 72040; 73030; 99284; J7512

== ENCOUNTER 2019-11-27 19:45 | Emergency (ER) | payer SELFPAY ==
[~2019-11-27 19:45] MED LIST changes: +HYDR-3165 PO; +PRED-220 PO
--- NOTE | 2019-11-27 19:54 | PHYS DOC ---
Past History Past Medical History: Asthma, COPD Past Surgical History: Cholecystectomy, , Hysterectomy Smoking: Cigarettes Alcohol Use: Occasionally Drug Use: Marijuana Adult General Chief Complaint Chief Complaint: FACE PROBLEM.." My tongue and mouth is on fire... I think I got thrush... I ve been on steroids..." HPI HPI Patient is a 39 year old female who presents with above hx and complaints painful, and thrush complaints. Patient recently on steroids. Does have findings in her mouth consistent with thrush versus herpetic oral lesions. Patient d enies any specific ill contacts. No recent travel. Does have history of recently completing a course of steroids for bronchitis. Patient denies any history immunosuppression. Patient called complaining that she has increased pain with any drinks even 7-Up or Coca-Cola. Review of Systems Review of Systems Constitutional: Denies fever or chills [] Eyes: Denies change in visual acuity, redness, or eye pain [] HENT: Complains of mouth and tongue lesions Respiratory: Denies cough or shortness of breath [] Cardiovascular: No additional information not addressed in HPI [] GI: Denies abdominal pain, nausea, vomiting, bloody stools or diarrhea [] : Denies dysuria or hematuria [] Musculoskeletal: Denies back pain or joint pain [] Integument: Denies rash or skin lesions [] Neurologic: Denies headache, focal weakness or sensory changes [] Endocrine: Denies polyuria or polydipsia [] All other systems were reviewed and found to be within normal limits, except as documented in this note. Family History Family History Noncontributory Current Medications Current Medications See nursing for home meds Allergies Allergies Allergies Coded Allergies Type Severity Reaction Last Updated Verified Penicillins Allergy Intermediate 04/10/16 Yes tramadol Allergy Unknown 07/13/18 Yes codeine Adverse Reaction Intermediate 04/10/16 Yes Physical Exam Physical Exam Constitutional: Well developed, well nourished, mild distress, non-toxic appearance. [] HENT: Normocephalic, atraumatic, bilateral external ears normal, oropharynx moist, has oral exudates and inflammation, very poor dentition and gingivitis, nose normal. [] Eyes: PERRLA, EOMI, conjunctiva normal, no discharge. [] Neck: Normal range of motion, no tenderness, supple, no stridor. [] Cardiovascular:Heart rate regular rhythm, no murmur [] Lungs & Thorax: Bilateral breath sounds equal apex with scattered wheezes. On Auscultation [] Abdomen: Bowel sounds normal, soft, no tenderness, no masses, no pulsatile domingo s. [] Old surgery scars. Skin: Warm, dry, no erythema, no rash. [] Back: No tenderness, no CVA tenderness. [] Extremities: No tenderness, no cyanosis, no clubbing, ROM intact, no edema. [] Neurologic: Alert and oriented X 3, normal motor function, normal sensory function, no focal deficits noted. [] Psychologic: Affect anxious, judgement normal, mood normal. [] EKG EKG [] Radiology/Procedures Radiology/Procedures [] Course & Med Decision Making Course & Med Decision Making Pertinent Labs and Imaging studies reviewed. (See chart for details) Patient is to stop smoking. Use Listerine 4 times a day. Take Diflucan 100 mg a day.x 3 days. Use liquid Benadryl 25 mg and mouth 4 times a day. Patient to follow-up primary care. Return if any concerns. Patient also use liquid ibuprofen for topical relief up to 4 times a day. Impression: 1. Thrush/ yeast vs Viral Syndrome 2. Tobacco use 3. Very poor dentition [] Dragon Disclaimer Dragon Disclaimer This electronic medical record was generated, in whole or in part, using a voice recognition dictation system. Departure Departure: Disposition: HOME/RESIDENCE PRIOR TO ADM Condition: STABLE Referrals: KAVITHA KING MD (PCP) Scripts Fluconazole (DIFLUCAN) 100 Mg Tablet 100 MG PO DAILY for thursh for 3 Days, #3 TAB Prov: SONALI HAZEL MD 11/27/19 Dragon Disclaimer This chart was dictated in whole or in part using Voice Recognition software in a busy, high-work load, and often noisy Emergency Department environment. It may contain unintended and wholly unrecognized errors or omissions. SONALI HAZEL MD Nov 27, 2019 19:54
[2019-11-27] MEDS ORDERED: FLUC100T7 PO (20:35)
[2019-11-27] MEDS ORDERED: diphenhydrAMINE HCL 25 MG CAPSULE PO ONE ×2 (20:43→21:00)
[2019-11-27] MEDS ORDERED: diphenhydrAMINE ORAL ELIXIR 12.5 MG/5 ML ML PO ONE (20:45)
[2019-11-27] MEDS ORDERED: FLUCONAZOLE 100 MG TABLET. PO ONE (20:45)
[2019-11-27 21:05] VITALS: BP 120/78
== END 2019-11-27 20:55 | disposition home or self-care (01) ==
LOC: ER 19:45
DX: K08.89 Other specified disorders of teeth and supporting structures (principal); K13.70 Unspecified lesions of oral mucosa; J44.9 Chronic obstructive pulmonary disease, unspecified; F17.210 Nicotine dependence, cigarettes, uncomplicated; Z88.0 Allergy status to penicillin; Z88.6 Allergy status to analgesic agent; Z88.5 Allergy status to narcotic agent
CPT/HCPCS: 99283; Q0163

== ENCOUNTER 2020-02-16 19:59 | Emergency (ER) | payer SELFPAY ==
[~2020-02-16] VITALS: Ht 160 cm; Wt 67.1 kg
[~2020-02-16 19:59] MED LIST changes: +FLUC100T7 PO
[2020-02-16 20:00] VITALS: BP 125/86
--- NOTE | 2020-02-16 20:12 | PHYS DOC ---
Past History Past Medical History: Anxiety, Asthma, COPD Past Surgical History: Cholecystectomy, , Hysterectomy Smoking: Cigarettes Alcohol Use: Occasionally Drug Use: Marijuana Adult General Chief Complaint Chief Complaint: SHORTNESS OF BREATH..." I coughing.. for the last week.. But the last 2 days .. sore throat.. really wheezing. I hurt all over... I just don't feel well... maybe I ... got flu or that CO 19 thing... I feel worse last 2 days ..I feel like I'm running a fever HPI HPI Patient is a 39 year old female who presents with above hx and complaints of dyspnea, non-productive cough, malaise, myalgia, arthralgia, fever, chills, wheezing, and rhinorrhea.. Patient has known history of intermittent episodes of bronchitis and hx. been told she has COPD. Has history of asthma. Patient does not know her best peak flow. Has never been admitted for her asthma. Patient has not been on steroids recently. Patient states she has 1 or 2 exacerbations of her asthma/bronchitis per year. No travel outside of [facility] recently. Does continue to smoke cigarettes and marijuana. Approximate [id number] smoking history. No specific ill contacts. Patient does also have a history of anxiety and bipolar disorder. Patient has not gotten a flu vaccination this season. Has never had a Pneumovax. Patient denies history immunosuppression .Pt. follows with Dr. Blancas. Prior to arrival has not taken any Tylenol or ibuprofen- and was afebrile on arrival. Review of Systems Review of Systems Constitutional: Complaints of fever or chills [] Eyes: Denies change in visual acuity, redness, or eye pain [] HENT: Complaints of nasal congestion and sore throat [] Respiratory: Complaints of nonproductive cough and increased wheezing Cardiovascular: No additional information not addressed in HPI [] GI: Denies abdominal pain, nausea, vomiting, bloody stools or diarrhea [] : Denies dysuria or hematuria [] Musculoskeletal: Denies back pain or joint pain [] Integument: Denies rash or skin lesions [] Neurologic: Denies headache, focal weakness or sensory changes [] Endocrine: Denies polyuria or polydipsia [] All other systems were reviewed and found to be within normal limits, except as documented in this note. Family History Family History Father had coronary artery disease with heart attacks, COPD Current Medications Current Medications See nursing for home meds Allergies Allergies Allergies Coded Allergies Type Severity Reaction Last Updated Verified Penicillins Allergy Intermediate 04/10/16 Yes tramadol Allergy Unknown 07/13/18 Yes codeine Adverse Reaction Intermediate 04/10/16 Yes Physical Exam Physical Exam Constitutional: Mild to moderate acute distress, non-toxic appearance. [] HENT: Normocephalic, atraumatic, bilateral external ears normal, oropharynx moist, postnasal drainage with pharyngeal erythema, no oral exudates, nose swollen turbinates and clear rhinorrhea Eyes: PERRLA, EOMI, conjunctiva normal, no discharge. Glasses. Neck: Normal range of motion, no tenderness, supple, no stridor. [] Cardiovascular:Heart rate regular rhythm, no murmur [] Lungs & Thorax: Bilateral breath sounds equal apex with scattered wheezes throughout on auscultation . Seem to have increase rhonchi on right lung field. Does have a non-productive cough during exam. Abdomen: Bowel sounds normal, soft, no tenderness, no masses, no pulsatile masses. Old surgical scars. Skin: Warm, dry, no erythema, no rash. [] Back: No tenderness, no CVA tenderness. [] Extremities: No tenderness, no cyanosis, no clubbing, ROM intact, no edema. No cording in legs Neurologic: Alert and oriented X 3, normal motor function, normal sensory function, no focal deficits noted. [] Psychologic: Affect anxious, judgement normal, mood normal. [] EKG EKG [] Radiology/Procedures Radiology/Procedures [][address] [address] IMAGING REPORT Signed PATIENT: KWAME KAPLAN ACCOUNT: [id number] : 1980 LOCATION: ER AGE: 39 SEX: F EXAM STATUS: REG ER ORD. PHYSICIAN: SONALI HAZEL MD REASON: Cough, congestion, dyspnea. Hx: Asthma PROCEDURE: CHEST PA & LATERAL Exam: Chest 2 views INDICATION: Cough, congestion TECHNIQUE: Frontal and lateral views the chest Comparisons: 10/13/2019 FINDINGS: The cardiomediastinal silhouette and pulmonary vessels are within normal limits. Subtle patchy airspace disease predominantly in the medial right lung base. No pleural effusion. IMPRESSION: Subtle patchy airspace disease in the medial right lung base, may represent developing infectious process. Electronically signed by: Ellen Morales MD (02/16/2020 9:19 PM) [id number] DICTATED AND SIGNED BY: ELLEN MORALES MD DATE: 02/16/202118 CC: SONALI HAZEL MD; KAVITHA BLANCAS MD ~ Course & Med Decision Making Course & Med Decision Making Pertinent Labs and Imaging studies reviewed. (See chart for details) Patient to stop smoking. P Patient take prednisone 50 mg a day for 5 days. Patient uses MDI 2 puffs 4 times a day. Patient to get flu vaccination and Pneumovax when over this acute illness. Take Tylenol and ibuprofen for discomfort. May use Benadryl 25-50 mg 4 times a day for nasal drainage and cough. Patient is to self isolate. Patient avoid crowds. No travel.. Practice social isolation when ill. Follow-up primary care. Return if any concerns. Follow with [facility] for up to date information on CO-19. Impression: 1. Hx.Bronchitis / COPD 2. Bronchial Pneumonia 3. Tobacco / Marijuana abuse 4. Hx of Asthma 5. Hx. Bipolar and Anxiety []Note may be omitted or deficits and record and or duplications. Computer shut down during workup and documentation with record. Dragon Disclaimer Dragon Disclaimer This electronic medical record was generated, in whole or in part, using a voice recognition dictation system. Departure Departure: Disposition: HOME/RESIDENCE PRIOR TO ADM Condition: STABLE Referrals: KAVITHA BLANCAS MD (PCP) Scripts Azithromycin (ZITHROMAX) 250 Mg Tablet 250 MG PO DAILY for ANTI-BIOTIC, #5 TAB 0 Refills Prov: SONALI HAZEL MD 02/16/20 Prednisone (PREDNISONE) 50 Mg Tablet 50 MG PO DAILY for asthma for 5 Days, #5 TAB Prov: SONALI HAZEL MD 02/16/20 Albuterol Sulfate (VENTOLIN HFA INHALER) 18 Gm Hfa.aer.ad 2 PUFF IH PRN Q4HRS PRN for FOR ASTHMA for 30 Days, INHALER 0 Refills Prov: SONALI HAZEL MD 02/16/20 Dragon Disclaimer This chart was dictated in whole or in part using Voice Recognition software in a busy, high-work load, and often noisy Emergency Department environment. It may contain unintended and wholly unrecognized errors or omissions. Dragon Disclaimer This chart was dictated in whole or in part using Voice Recognition software in a busy, high-work load, and often noisy Emergency Department environment. It may contain unintended and wholly unrecognized errors or omissions. SONALI HAZEL MD Feb 16, 2020 20:12
[2020-02-16] MEDS ORDERED: predniSONE 10 MG TABLET PO ONE (20:15)
[2020-02-16] MEDS ORDERED: IPRATRPIUM/ALBUTEROL 0.5/2.5MG 3 ML NEBU. NEB ONE (20:15)
--- NOTE | 2020-02-16 21:22 | RAD ---
Exam: Chest 2 views INDICATION: Cough, congestion TECHNIQUE: Frontal and lateral views the chest Comparisons: 10/13/2019 FINDINGS: The cardiomediastinal silhouette and pulmonary vessels are within normal limits. Subtle patchy airspace disease predominantly in the medial right lung base. No pleural effusion. IMPRESSION: Subtle patchy airspace disease in the medial right lung base, may represent developing infectious process. Electronically signed by: Ellen Rodriguez MD (02/16/2020 9:19 PM) [id number]
[2020-02-16 21:35] LABS: INFLUENZA A PATIENT NEGATIVE (NEGATIVE); INFLUENZA B PATIENT NEGATIVE (NEGATIVE)
[2020-02-16] MEDS ORDERED: AZITHROMYCIN 250 MG TABLET. PO ONE (21:45)
[2020-02-16] MEDS ORDERED: ALBU2.5V8 IH (21:49)
[2020-02-16] MEDS ORDERED: PRED50TA PO (21:49)
[2020-02-16] MEDS ORDERED: AZIT250T PO (22:11)
== END 2020-02-16 22:10 | disposition home or self-care (01) ==
LOC: ER 19:59
DX: J18.0 Bronchopneumonia, unspecified organism (principal); F41.9 Anxiety disorder, unspecified; J44.9 Chronic obstructive pulmonary disease, unspecified; F17.210 Nicotine dependence, cigarettes, uncomplicated; F31.9 Bipolar disorder, unspecified; Z88.0 Allergy status to penicillin; Z88.5 Allergy status to narcotic agent; Z88.6 Allergy status to analgesic agent
CPT/HCPCS: 71046; 87070; 87804; 87880; 94640; 99284; J0456; J7512

== ENCOUNTER 2020-04-09 17:30 | Emergency (ER) | payer OTHER ==
[~2020-04-09] VITALS: Ht 160 cm; Wt 67.1 kg
[2020-04-09 17:30] VITALS: BP 121/63
[~2020-04-09 17:30] MED LIST changes: +ALBU2.5V8 IH
[2020-04-09] MEDS ORDERED: KETOROLAC 60 MG/2 ML VIAL. IM ONE (17:45)
[2020-04-09] MEDS ORDERED: ORPHENADRINE CITRATE 60 MG/2 ML VIAL. IM ONE (17:45)
[2020-04-09] MEDS ORDERED: NAPR500T8 PO (17:47)
[2020-04-09] MEDS ORDERED: METH-38 PO (17:47)
--- NOTE | 2020-04-09 17:47 | PHYS DOC ---
Past History Past Medical History: Anxiety, Asthma, COPD, Depression Past Surgical History: Cholecystectomy, , Hysterectomy Smoking: Cigarettes Alcohol Use: Occasionally Drug Use: Marijuana General Adult EDM: Chief Complaint: BACK PAIN OR INJURY HPI: HPI: Patient is a 39-year-old female who presents with low back and left buttock pain. She states is been going on for a couple days. She states she woke up with difficulty moving her left leg. She denies any bowel or bladder dysfunction. She denies any dysuria or gross hematuria. She denies any flank pain. She states the pain is much worse when she tries to stand up straight. [] Review of Systems: Review of Systems: Constitutional: Denies fever or chills Eyes: Denies change in visual acuity HENT: Denies nasal congestion or sore throat Respiratory: Denies cough or shortness of breath Cardiovascular: Denies chest pain or edema GI: Denies abdominal pain, nausea, vomiting, bloody stools or diarrhea : Denies dysuria Musculoskeletal: Per HPI Integument: Denies rash Neurologic: Denies headache, focal weakness or sensory changes Endocrine: Denies polyuria or polydipsia Lymphatic: Denies swollen glands Psychiatric: Denies depression or anxiety Heart Score: Risk Factors: Risk Factors: DM, Current or recent (<one month) smoker, HTN, HLP, family history of CAD, obesity. Risk Scores: Score 0 - 3: 2.5% MACE over next 6 weeks - Discharge Home Score 4 - 6: 20.3% MACE over next 6 weeks - Admit for Clinical Observation Score 7 - 10: 72.7% MACE over next 6 weeks - Early Invasive Strategies Allergies: Allergies: Allergies Coded Allergies Type Severity Reaction Last Updated Verified Penicillins Allergy Intermediate 04/10/16 Yes tramadol Allergy Unknown 07/13/18 Yes codeine Adverse Reaction Intermediate 04/10/16 Yes Physical Exam: PE: Constitutional: Well developed, well nourished, mild distress, non-toxic appearance. [] HENT: Normocephalic, atraumatic, bilateral external ears normal, oropharynx moist, no oral exudates, nose normal. [] Eyes: PERRLA, EOMI, conjunctiva normal, no discharge. [] Neck: Normal range of motion, no tenderness, supple, no stridor. [] Cardiovascular:Heart rate regular rhythm, no murmur [] Lungs & Thorax: Bilateral breath sounds clear to auscultation [] Abdomen: Bowel sounds normal, soft, no tenderness, no masses, no pulsatile masses. [] Skin: Warm, dry, no erythema, no rash. [] Back: Tenderness in the left SI joint and over the left piriformis which reproduces the symptoms [] Extremities: No tenderness, no cyanosis, no clubbing, ROM intact, no edema. [] Neurologic: Alert and oriented X 3, normal motor function, normal sensory fun ction, no focal deficits noted. [] Psychologic: Anxious. [] Current Patient Data: Vital Signs: Vital Signs Date Time Temp Pulse Resp B/P (MAP) Pulse Ox O2 Delivery O2 Flow Rate FiO2 04/09/20 17:30 98.3 63 18 121/63 (82) 100 Room Air EKG: EKG: [] Radiology/Procedures: Radiology/Procedures: [] Course & Med Decision Making: Course & Med Decision Making Pertinent Labs and Imaging studies reviewed. (See chart for details) [] Dragon Disclaimer: Dragon Disclaimer: This electronic medical record was generated, in whole or in part, using a voice recognition dictation system. Departure Departure: Impression: Primary Impression: Sciatica of left side Additional Impression: Piriformis syndrome of left side Disposition: 01 HOME/RESIDENCE PRIOR TO ADM Condition: STABLE Referrals: KAVITHA KING MD (PCP) Patient Instructions: Piriformis Syndrome, Piriformis Syndrome with [facility] Scripts Methocarbamol (ROBAXIN-750) 750 Mg Tablet 1 TAB PO BID for back pain for 30 Days, #60 TAB 0 Refills Prov: SUSHILA JOSHI DO 04/09/20 Naproxen (NAPROXEN) 500 Mg Tablet. 1 TAB PO Q12HR PRN for PAIN, #60 TAB 1 Refill Prov: SUSHILA JOSHI DO 04/09/20 SUSHILA JOSHI DO April 09, 2020 17:47
== END 2020-04-09 18:08 | disposition home or self-care (01) ==
LOC: ER 17:30
DX: M54.42 Lumbago with sciatica, left side (principal); J44.9 Chronic obstructive pulmonary disease, unspecified; F17.210 Nicotine dependence, cigarettes, uncomplicated; Z90.49 Acquired absence of other specified parts of digestive tract; Z90.710 Acquired absence of both cervix and uterus; Z98.890 Other specified postprocedural states; Z88.0 Allergy status to penicillin; Z88.6 Allergy status to analgesic agent; Z88.5 Allergy status to narcotic agent
CPT/HCPCS: 96372; 99284; J1885; J2360

== ENCOUNTER 2020-07-08 20:05 | Emergency (ER) | payer SELFPAY ==
[~2020-07-08] VITALS: Ht 157.5 cm; Wt 66.8 kg
[~2020-07-08 20:05] MED LIST changes: +METH-38 PO; +NAPR500T8 PO
[2020-07-08 20:29] VITALS: BP 131/86
--- NOTE | 2020-07-08 20:36 | PHYS DOC ---
Past History Past Medical History: Anxiety, Asthma, Bipolar, COPD, Depression Past Surgical History: Cholecystectomy, , Hysterectomy Smoking: Cigarettes Alcohol Use: Occasionally Drug Use: Marijuana General Adult EDM: Chief Complaint: UPPER EXTREMITY PAIN HPI: HPI: Patient is a 39-year-old female who presented to ER today for evaluation of left wrist pain after she tripped and fell over her dog. Patient hit her left wrist on the hardwood floor at her house. Patient denies any head or neck injury Review of Systems: Review of Systems: Constitutional: Denies fever or chills Eyes: Denies change in visual acuity HENT: Denies nasal congestion or sore throat Respiratory: Denies cough or shortness of breath Cardiovascular: Denies chest pain or edema GI: Denies abdominal pain, nausea, vomiting, bloody stools or diarrhea : Denies dysuria Musculoskeletal: Positive for left wrist pain Integument: Denies rash Neurologic: Denies headache, focal weakness or sensory changes Endocrine: Denies polyuria or polydipsia Lymphatic: Denies swollen glands Psychiatric: Denies depression or anxiety Heart Score: Risk Factors: Risk Factors: DM, Current or recent (<one month) smoker, HTN, HLP, family history of CAD, obesity. Risk Scores: Score 0 - 3: 2.5% MACE over next 6 weeks - Discharge Home Score 4 - 6: 20.3% MACE over next 6 weeks - Admit for Clinical Observation Score 7 - 10: 72.7% MACE over next 6 weeks - Early Invasive Strategies Allergies: Allergies: Allergies Coded Allergies Type Severity Reaction Last Updated Verified Penicillins Allergy Intermediate 04/10/16 Yes tramadol Allergy Unknown 07/13/18 Yes codeine Adverse Reaction Intermediate 04/10/16 Yes Physical Exam: PE: Constitutional: Well developed, well nourished, no acute distress, non-toxic appearance. [] HENT: Normocephalic, atraumatic, bilateral external ears normal, oropharynx moist, no oral exudates, nose normal. [] Eyes: PERRLA, EOMI, conjunctiva normal, no discharge. [] Neck: Normal range of motion, no tenderness, supple, no stridor. [] Cardiovascular:Heart rate regular rhythm, no murmur [] Lungs & Thorax: Bilateral breath sounds clear to auscultation [] Abdomen: Bowel sounds normal, soft, no tenderness, no masses, no pulsatile masses. [] Skin: Warm, dry, no erythema, no rash. [] Back: No tenderness, no CVA tenderness. [] Extremities: LEFT WRIST IS TENDER TO PALPATION AT THE RADIAL SIDE AREA, NO OPEN WOUND AREA. Neurologic: Alert and oriented X 3, normal motor function, normal sensory function, no focal deficits noted. [] Psychologic: Affect normal, judgement normal, mood normal. [] EKG: EKG: [] Radiology/Procedures: Radiology/Procedures: [][address] [address] IMAGING REPORT Signed PATIENT: KWAME KAPLAN ACCOUNT: [id number] : 1980 LOCATION: ER AGE: 39 SEX: F EXAM STATUS: REG ER ORD. PHYSICIAN: EFREM BAEZ DO REASON: LEFT WRIST INJURED, FELL TODAY PROCEDURE: WRIST 3V LEFT INDICATION: Reason: LEFT WRIST INJURED, FELL TODAY / Spl. Instructions: / History: COMPARISON: None. IMPRESSION: Left wrist: 3 views obtained. No evidence of acute fracture or dislocation. Electronically signed by: Jahaira Armijo MD (07/08/2020 8:51 PM) [id number] DICTATED AND SIGNED BY: JAHAIRA ARMIJO MD DATE: 07/08/202050 CC: EFREM BAEZ DO; KAVITHA KING MD ~ Course & Med Decision Making: Course & Med Decision Making Pertinent Labs and Imaging studies reviewed. (See chart for details) Patient is a 39-year-old female who presented to ER today for evaluation of left wrist pain after she fell. X-ray did not show any acute problem. A Velcro wrist splint was applied on her left wrist by the RN. Patient will be discharged home, she was instructed follow-up with her family doctor in 10 days to have her x-ray of the left wrist again to rule out hairline fracture. Dragon Disclaimer: Dragon Disclaimer: This electronic medical record was generated, in whole or in part, using a voice recognition dictation system. Departure Departure: Impression: Primary Impression: Left wrist sprain Disposition: 01 HOME/RESIDENCE PRIOR TO ADM Condition: STABLE Referrals: KAVITHA KING MD (PCP) PLEASE FOLLOW UP WITH YOUR DOCTOR IN 10 DAYS TO HAVE YOUR LEFT WRIST XRAY AGAIN. KEEP SPLINT ON. Patient Instructions: Wrist Sprain with [facility]hab[facility] Justification of Admission: Justification of Admission: Justification of Admission Dx: N/A EFREM BAEZ DO Jul 08, 2020 20:36
--- NOTE | 2020-07-08 20:54 | RAD ---
INDICATION: Reason: LEFT WRIST INJURED, FELL TODAY / Spl. Instructions: / History: COMPARISON: None. IMPRESSION: Left wrist: 3 views obtained. No evidence of acute fracture or dislocation. Electronically signed by: Davon Gabriel MD (07/08/2020 8:51 PM) [id number]
[2020-07-08] MEDS ORDERED: ACETAMINOPHEN 500 MG TABLET PO ONE (21:00)
[2020-07-08] MEDS ORDERED: IBUPROFEN 600 MG TABLET. PO ONE (21:00)
[2020-07-08] MEDS: ACETAMINOPHEN 500 MG TABLET PO ONE (21:02)
[2020-07-08] MEDS: IBUPROFEN 600 MG TABLET. PO ONE (21:03)
== END 2020-07-08 21:15 | disposition home or self-care (01) ==
LOC: ER 20:05
DX: S63.502A Unspecified sprain of left wrist, initial encounter (principal); J44.9 Chronic obstructive pulmonary disease, unspecified; F41.9 Anxiety disorder, unspecified; F31.9 Bipolar disorder, unspecified; Z88.0 Allergy status to penicillin; Z88.5 Allergy status to narcotic agent; Z88.6 Allergy status to analgesic agent; W01.0XXA Fall on same level from slipping, tripping and stumbling without subsequent striking against object, initial encounter; Y93.89 Activity, other specified; Y92.89 Other specified places as the place of occurrence of the external cause; Y99.8 Other external cause status
CPT/HCPCS: 29125; 73110; 99283

== ENCOUNTER → 2020-08-04 | Outpatient (CLI) | payer MEDICAID ==
[2020-07-08 20:29] VITALS: BP 131/86
--- NOTE | 2020-08-04 14:43 | RAD ---
PROCEDURE: LUMBAR SPINE 2-3V, WRIST 2V LEFT, KNEE RIGHT 2V CLINICAL INDICATION / HISTORY: Reason: FALL, BACK PAIN / Spl. Instructions: / History: . TECHNIQUE: 3 VIEWS: AP, lateral and odontoid COMPARISON: none FINDINGS: Alignment is within normal limits. There is preservation of the normal cervical lordosis. Vertebral body heights and disc spaces are well maintained. The atlantoaxial joint is well maintained. No fracture or subluxation is identified. Prevertebral and paraspinous soft tissues are unremarkable. IMPRESSION: No evidence of fracture or subluxation in the cervical spine. PROCEDURE: LUMBAR SPINE 2-3V, WRIST 2V LEFT, KNEE RIGHT 2V CLINICAL INDICATION / HISTORY: Reason: FALL, BACK PAIN / Spl. Instructions: / History: . TECHNIQUE: AP, lateral and coned-down lateral views of the lumbar spine COMPARISON: None FINDINGS: Five lumbar segments are identified. Lumbar vertebral bodies are normal in height and alignment. Disc height is maintained. Pedicles are intact. IMPRESSION: No acute traumatic findings in the lumbar spine seen. PROCEDURE: LUMBAR SPINE 2-3V, WRIST 2V LEFT, KNEE RIGHT 2V CLINICAL INDICATION / HISTORY: Reason: FALL, BACK PAIN / Spl. Instructions: / History: . TECHNIQUE: Left wrist 2 views. AP and lateral views . COMPARISON: None FINDINGS: The radiocarpal and intracarpal relationships are maintained. There is no fracture or dislocation. The bone density is normal. No significant soft tissue abnormality is seen. IMPRESSION: No acute osseous abnormality. Electronically signed by: Yang Marte MD (08/04/2020 2:40 PM) [id number]
== END | disposition home or self-care (01) ==
LOC: DXRAD 13:59
PROVIDERS: ATTEND Family Medicine
DX: M25.532 Pain in left wrist (principal); M25.562 Pain in left knee; M54.5 Low back pain
CPT/HCPCS: 72100; 73100; 73560

== ENCOUNTER 2020-08-24 15:53 | Emergency (ER) | payer MEDICAID ==
[~2020-08-24] VITALS: Ht 154.9 cm; Wt 66.8 kg
--- NOTE | 2020-08-24 17:27 | RAD ---
INDICATION: Reason: pain, fall / Spl. Instructions: / History: COMPARISON: None. IMPRESSION: Left elbow: 3 views obtained. No evidence of acute fracture or dislocation. Left shoulder: 3 views obtained. No evidence of acute fracture or dislocation. Electronically signed by: Davon Gabriel MD (08/24/2020 5:24 PM) [id number]
[2020-08-24] MEDS ORDERED: ORPHENADRINE CITRATE 60 MG/2 ML VIAL. IM ONE (17:45)
--- NOTE | 2020-08-24 17:51 | PHYS DOC ---
Past History Past Medical History: Anxiety, Asthma, Bipolar, COPD, Depression Past Surgical History: Cholecystectomy, , Hysterectomy Smoking: Cigarettes Alcohol Use: Occasionally Drug Use: Marijuana Adult General Chief Complaint Chief Complaint: MECHANICAL FALL HPI HPI Patient is a 39-year-old female presents to the emergency room after tripping over her sister while her sister was having a seizure. She is having shoulder and elbow pain. She states she is able to move it but it is very painful. She denies any other injuries. She did not hit her head or lose consciousness. Review of Systems Review of Systems General: Denies fever, chills, sweats, fatigue Eyes: Denies drainage, blurred vision, eye redness HENT: Denies rhinorrhea, sore throat, earache Respiratory: Denies cough, shortness of breath, wheezing Cardiac: Denies edema, palpitations, chest pain GI: Denies abdominal pain, Nausea, vomiting MSK: Denies back pain, neck pain Skin: Denies rash, jaundice Neuro: Denies headache, dizziness Psychiatric: Denies SI/HI Current Medications Current Medications Current Medications Medications (Trade) Dose Ordered Sig/Barbara Start Time Stop Time Status Last Admin Dose Admin Orphenadrine Citrate (Norflex) 60 mg 1X ONCE 08/24/20 17:45 08/24/20 17:46 DC Allergies Allergies Allergies Coded Allergies Type Severity Reaction Last Updated Verified Penicillins Allergy Intermediate 08/24/20 Yes tramadol Allergy Unknown 08/24/20 Yes codeine Adverse Reaction Intermediate 08/24/20 Yes Physical Exam Physical Exam General: Awake, alert, NAD. Well Nourished, well hydrated. Cooperative HEENT: [Atraumatic], EOMI, PERRL, airway patent, moist oral mucosa, no nasal septal hematoma, no facial crepitus or deformity Neck: Supple, trachea midline,[no c-spine tenderness] Respiratory: CTA bilaterally, normal effort, no wheezing/crackles, no crepitus CV: RRR, no murmur, cap refill <2, 2+ bilateral radial/DP pulses GI: Soft, nondistended, nontender, no masses MSK: Left upper extremity: Upper shoulder tenderness with no deformity or swelling, left elbow tenderness with minimal swelling, pelvis stable and nontender Skin: Warm, dry, [intact] Neuro: A&O x3, speech NL, sensory and motor grossly intact, no focal deficits Psych: Normal affect, normal mood, not suicidal or homicidal EKG EKG [] Radiology/Procedures Radiology/Procedures [] Course & Med Decision Making Course & Med Decision Making Pertinent Labs and Imaging studies reviewed. (See chart for details) Patient is 39-year-old female presents to the emergency room after tripping over her sister. X-rays were done and are normal. Patient will be treated symptomatically and will follow up with primary care. Patient's test results and vitals while in the ED were fully reviewed and discussed with the patient. Patient is stable and at this time does not need admission to the hospital. We have discussed strict return precautions and the importance of following up with their Primary Care Physician. Patient stated understanding and was given an opportunity to ask any questions. Patient is in agreement with plan. Dragon Disclaimer Dragon Disclaimer This electronic medical record was generated, in whole or in part, using a voice recognition dictation system. Departure Departure: Disposition: 01 HOME/RESIDENCE PRIOR TO ADM Condition: STABLE Referrals: KAVITHA KING MD (PCP) KAYLEEN ZAMUDIO MD Aug 24, 2020 17:51
[2020-08-24] MEDS ORDERED: METH-38 PO (17:53)
[2020-08-24 18:15] VITALS: BP 136/85
== END 2020-08-24 18:15 | disposition home or self-care (01) ==
LOC: ER 15:53
DX: M25.512 Pain in left shoulder (principal); M25.522 Pain in left elbow; J44.9 Chronic obstructive pulmonary disease, unspecified; F17.210 Nicotine dependence, cigarettes, uncomplicated; Z88.6 Allergy status to analgesic agent; Z88.0 Allergy status to penicillin; Z88.5 Allergy status to narcotic agent; W03.XXXA Other fall on same level due to collision with another person, initial encounter; Y93.89 Activity, other specified; Y92.89 Other specified places as the place of occurrence of the external cause; Y99.8 Other external cause status
CPT/HCPCS: 73030; 73080; 96372; 99284; J2360

== ENCOUNTER 2020-10-24 13:21 | Emergency (ER) | payer MEDICAID ==
[~2020-10-24] VITALS: Ht 157.5 cm; Wt 73.0 kg
--- NOTE | 2020-10-24 13:42 | PHYS DOC ---
Past History Past Medical History: Asthma, COPD Past Surgical History: Cholecystectomy, , Hysterectomy, Tubal ligation Smoking: Cigarettes Alcohol Use: Occasionally Drug Use: Marijuana Adult General [facility] HPI Patient is a 39yo female presenting for UTI-like symptoms. Reports suprapubic pain and lower AP x 24 hours. Nothing known makes better, urinating makes worse. Pain is focal without radiation. Timing of symptoms has been constant but exacerbated with urination. No fever, no history of kidney stones or prior abdominal surgeries. Review of Systems Review of Systems Fourteen body systems of review of systems have been reviewed. See HPI for pertinent positives and negative responses, other shields all other systems are negative, non-pertinent or non-contributory Allergies Allergies Allergies Coded Allergies Type Severity Reaction Last Updated Verified Penicillins Allergy Intermediate 08/24/20 Yes tramadol Allergy Unknown 08/24/20 Yes codeine Adverse Reaction Intermediate 08/24/20 Yes Physical Exam Physical Exam Constitutional: Well developed, well nourished, no acute distress, non-toxic appearance. Smells of THC HENT: Normocephalic, atraumatic, bilateral external ears normal, oropharynx moist, no oral exudates, nose normal. Eyes: PERRLA, EOMI, conjunctiva normal, no discharge. Neck: Normal range of motion, no tenderness, supple, no stridor. Cardiovascular: Heart rate regular, sinus rhythm, no murmurs rubs or gallops Lungs & Thorax: Bilateral breath sounds clear to auscultation Abdomen: Bowel sounds normal, soft, suprapubic tenderness without guarding or rebound, no masses, no pulsatile masses. Nonsurgical abdomen, no peritoneal signs Skin: Warm, dry, no erythema, no rash. Back: No tenderness, no CVA tenderness. Extremities: No tenderness, no cyanosis, no clubbing, ROM intact, no edema. Neurologic: Alert and oriented X 3, grossly normal motor & sensory function, no focal deficits noted. Psychologic: Affect normal, judgement normal, mood normal. Current Patient Data Vital Signs Vital Signs Date Time Temp Pulse Resp B/P (MAP) Pulse Ox O2 Delivery O2 Flow Rate FiO2 10/24/20 13:52 98.1 79 18 116/68 (84) 100 Room Air Lab Results Laboratory Tests Test 10/24/20 13:50 Urine Collection Type Unknown Urine Color Yellow Urine Clarity Cloudy Urine pH 8.5 Urine Specific [place] 1.020 Urine Protein Neg (NEG-TRACE) Urine Glucose (UA) Neg mg/dL (NEG) Urine Ketones (Stick) Neg mg/dL (NEG) Urine Blood Neg (NEG) Urine Nitrite Pos (NEG) Urine Bilirubin Neg (NEG) Urine Urobilinogen Dipstick 0.2 mg/dL (0.2 mg/dL) Urine Leukocyte Esterase Neg (NEG) Urine RBC 1-2 /HPF (0-2) Urine WBC 11-20 /HPF (0-4) Urine Squamous Epithelial Cells Many /LPF Urine Bacteria Many /HPF (0-FEW) Urine Test Negative (NEG) EKG EKG [] Radiology/Procedures Radiology/Procedures [] Heart Score Risk Factors: Risk Factors: DM, Current or recent (<one month) smoker, HTN, HLP, family history of CAD, obesity. Risk Scores: Risk Factors: DM, Current or recent (<one month) smoker, HTN, HLP, family history of CAD, obesity. Course & Med Decision Making Course & Med Decision Making Not . Unlikely TOA, Ovarian Torsion, PID, gonorrhea/chlamydia. Low suspicion for Infected Urolithiasis, AAA, Cholecystitis, Pancreatitis, SBO, Appendicitis, or other acute abdomen. I did disclose this might be an acute presentation of more concerning pathology but at present given sxs and PE findings, no indication for further diagnostic workup Rx: Macrobid for 5 days Disposition: Discharge home. SRP discussed. Advise follow up with primary care provider within 24-72 hours. Dragon Disclaimer Dragon Disclaimer This electronic medical record was generated, in whole or in part, using a voice recognition dictation system. Departure Departure: Impression: Primary Impression: UTI (urinary tract infection) Disposition: 01 DC HOME SELF CARE/HOMELESS Condition: STABLE Referrals: KAVITHA KING MD (PCP) Patient Instructions: Urinary Tract Infection Additional Instructions: As discussed prior to ER departure, please call your primary care physician first thing after ER departure to schedule outpatient follow-up in upcoming 3 to 14 days time for repeat evaluation You were given antibiotics for your urinary tract infection found today which is likely source of your symptomology. Please take this as prescribed daily until completion As discussed, if any concerning signs or symptoms present prior to outpatient follow-up such as fever worsened pain in abdomen that migrates into your left and right flanks please do not hesitate to call your primary care office to discuss case and/or represent to our facility for evaluation It was a pleasure to take care of you and I wish you a speedy recovery! Scripts Nitrofurantoin Monohyd/M-Cryst (MACROBID 100 MG CAPSULE) 100 Mg Capsule 1 CAP PO BID for UTI for 5 Days, #9 CAP 0 Refills Prov: GONZALEZ HOLDEN DO 10/24/20 GONZALEZ HOLDEN DO Oct 24, 2020 13:42
[2020-10-24 13:52] VITALS: BP 116/68
[2020-10-24 14:38] LABS: BACTERIA,URINE MANY /HPF (0-FEW); BILIRUBIN,URINE NEG (NEG); CLARITY,URINE CLOUDY; COLOR,URINE YELLOW; GLUCOSE,URINE NEG (NEG); NITRITE,URINE POS (NEG); SQUAMOUS EPITHELIAL CELL,UR MANY /LPF; UROBILINOGEN,URINE 0.2 mg/dL (0.2 mg/dL)
[2020-10-24 14:39] LABS: U PREG PATIENT NEGATIVE (NEG)
[2020-10-24] MEDS ORDERED: NITR100C62 PO (14:50)
[2020-10-24] MEDS ORDERED: NITROFURANTOIN MONOHYD/M-CRYST 100 MG CAPSULE. PO ONE (15:00)
== END 2020-10-24 14:59 | disposition home or self-care (01) ==
LOC: ER 13:21
DX: N39.0 Urinary tract infection, site not specified (principal); R10.2 Pelvic and perineal pain; J44.9 Chronic obstructive pulmonary disease, unspecified; F12.90 Cannabis use, unspecified, uncomplicated; F17.210 Nicotine dependence, cigarettes, uncomplicated; Z90.49 Acquired absence of other specified parts of digestive tract; Z90.710 Acquired absence of both cervix and uterus; Z98.51 Tubal ligation status; Z88.0 Allergy status to penicillin; Z88.5 Allergy status to narcotic agent; Z88.8 Allergy status to other drugs, medicaments and biological substances
CPT/HCPCS: 81001; 81025; 87086; 99283

== ENCOUNTER 2020-11-04 21:24 | Emergency (ER) | payer MEDICAID, OTHER ==
[~2020-11-04] VITALS: Ht 154.9 cm; Wt 75.9 kg
[~2020-11-04 21:24] MED LIST changes: +NITR100C62 PO
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
[2020-11-04 21:41] VITALS: BP 126/73
[2020-11-04] MEDS ORDERED: HYDR-1179 PO (21:53)
[2020-11-04] MEDS: HYDROcodon/IBUPROFEN 7.5/200MG 1 TAB TABLET PO ONE (22:00)
== END 2020-11-04 22:06 ==
LOC: ER 21:24
DX: S13.9XXA Sprain of joints and ligaments of unspecified parts of neck, initial encounter (principal); F41.9 Anxiety disorder, unspecified; J44.9 Chronic obstructive pulmonary disease, unspecified; F17.210 Nicotine dependence, cigarettes, uncomplicated; Z88.0 Allergy status to penicillin; Z88.6 Allergy status to analgesic agent; Z88.5 Allergy status to narcotic agent; V40.5XXA Car driver injured in collision with pedestrian or animal in traffic accident, initial encounter; Y93.I9 Activity, other involving external motion; Y92.89 Other specified places as the place of occurrence of the external cause; Y99.8 Other external cause status
CPT/HCPCS: 99283

== ENCOUNTER 2020-11-19 21:51 | Emergency (ER) | payer MEDICAID, OTHER ==
[~2020-11-19] VITALS: Ht 154.9 cm; Wt 75.9 kg
--- NOTE | 2020-11-19 22:01 | PHYS DOC ---
Past History Past Medical History: Anxiety, Asthma, COPD, Depression Past Surgical History: Cholecystectomy, , Hysterectomy, Tubal ligation Smoking: Cigarettes Alcohol Use: None Drug Use: Marijuana General Adult EDM: Chief Complaint: ANKLE PROBLEM HPI: HPI: ".. I stepped in a hole.. and twisted this Lt. ankle..." Patient is a 40 year old female who presents with above hx and complaints ankle left ankle sprain. Patient localizes pain to the anterior ligament of ankle. There is some laxity. Distal neurovascular intact. There is no significant swelling. There is no upper leg tenderness. Patient is ambulatory. No other injury reported. Patient follows with Yon[facility]. Review of Systems: Review of Systems: Constitutional: Denies fever or chills Eyes: Denies change in visual acuity HENT: Denies nasal congestion or sore throat Respiratory: Denies cough or shortness of breath Cardiovascular: Denies chest pain or edema GI: Denies abdominal pain, nausea, vomiting, bloody stools or diarrhea : Denies dysuria Musculoskeletal: Complains of injury to left ankle Integument: Denies rash Neurologic: Denies headache, focal weakness or sensory changes Endocrine: Denies polyuria or polydipsia Lymphatic: Denies swollen glands Psychiatric: Denies depression or anxiety Family History: Family History: Noncontributory to presentation Current Medications: Current Meds: See nursing for home meds Allergies: Allergies: Allergies Coded Allergies Type Severity Reaction Last Updated Verified Penicillins Allergy Intermediate 08/24/20 Yes tramadol Allergy Unknown 08/24/20 Yes codeine Adverse Reaction Intermediate 08/24/20 Yes Physical Exam: PE: Constitutional: , no acute distress, non-toxic appearance. [] HENT: Normocephalic, atraumatic, bilateral external ears normal, oropharynx moist, no oral exudates, nose normal. [] Eyes: PERRLA, EOMI, conjunctiva normal, no discharge. [] Neck: Normal range of motion, no tenderness, supple, no stridor. [] Cardiovascular:Heart rate regular rhythm, no murmur [] Lungs & Thorax: Bilateral breath sounds equal at apex with scattered wheezes auscultation [] Abdomen: Bowel sounds normal, soft, no tenderness, no masses, no pulsatile masses. Obese. Old surgical scars Skin: Warm, dry, no erythema, no rash. [] Back: No tenderness, no CVA tenderness. [] Extremities: No tenderness, no cyanosis, no clubbing, ROM intact, no edema. Except complains of left ankle tenderness as per HPI Neurologic: Alert and oriented X 3, normal motor function, normal sensory function, no focal deficits noted. [] Psychologic: Affect normal, judgement normal, mood normal. [] EKG: EKG: [] Radiology/Procedures: Radiology/Procedures: [][address] [address] IMAGING REPORT Signed PATIENT: KWAME KAPLAN ACCOUNT: [id number] : 1980 LOCATION: ER AGE: 40 SEX: F EXAM STATUS: PRE ER ORD. PHYSICIAN: SONALI HAZEL MD REASON: injury, FELL IN A HOLE, ANTERIOR PAIN PROCEDURE: ANKLE LEFT 3V Exam: Left ankle 3 views INDICATION: Fall on all TECHNIQUE: Frontal, lateral and oblique views of the left ankle Comparisons: None FINDINGS: Bone mineralization is normal. No acute or healed fractures. Soft tissues are unremarkable. Joint spaces are well-maintained. IMPRESSION: No acute osseous abnormality. Electronically signed by: Ellen Morales MD (11/19/2020 11:10 PM) [facility] DICTATED AND SIGNED BY: ELLEN MORALES MD DATE: 11/19/20 0243 CC: SONALI HAZEL MD; KAVITHA KING MD ~MTH0 0 Heart Score: Risk Factors: Risk Factors: DM, Current or recent (<one month) smoker, HTN, HLP, family history of CAD, obesity. Risk Scores: Score 0 - 3: 2.5% MACE over next 6 weeks - Discharge Home Score 4 - 6: 20.3% MACE over next 6 weeks - Admit for Clinical Observation Score 7 - 10: 72.7% MACE over next 6 weeks - Early Invasive Strategies Course & Med Decision Making: Course & Med Decision Making Pertinent Labs and Imaging studies reviewed. (See chart for details) Patient to use ice, elevation, splint, and take Tylenol and ibuprofen for pain. Follow-up with primary. Consider gregory-ray in 2 weeks if persistent pain. Distal neurovascular intact after application of splint. Impression: 1. Ankle Sprain 2. Possible narcotic seeking behaviors [] Dragon Disclaimer: Dragon Disclaimer: This electronic medical record was generated, in whole or in part, using a voice recognition dictation system. Departure Departure: Referrals: KAVITHA KING MD (PCP) Meet Disclaimer This chart was dictated in whole or in part using Voice Recognition software in a busy, high-work load, and often noisy Emergency Department environment. It may contain unintended and wholly unrecognized errors or omissions. SONALI HAZEL MD Nov 19, 2020 22:01
[2020-11-19 22:06] VITALS: BP 114/71
--- NOTE | 2020-11-19 23:12 | RAD ---
Exam: Left ankle 3 views INDICATION: Fall on all TECHNIQUE: Frontal, lateral and oblique views of the left ankle Comparisons: None FINDINGS: Bone mineralization is normal. No acute or healed fractures. Soft tissues are unremarkable. Joint spa wild are well-maintained. IMPRESSION: No acute osseous abnormality. Electronically signed by: Ellen Rodriguez MD (11/19/2020 11:10 PM) [facility]
[2020-11-19] MEDS ORDERED: IBUPROFEN 600 MG TABLET. PO ONE (23:45)
== END 2020-11-20 00:04 | disposition home or self-care (01) ==
LOC: ER 21:51
DX: S93.402A Sprain of unspecified ligament of left ankle, initial encounter (principal); F41.9 Anxiety disorder, unspecified; J44.9 Chronic obstructive pulmonary disease, unspecified; F17.210 Nicotine dependence, cigarettes, uncomplicated; Z88.0 Allergy status to penicillin; Z88.6 Allergy status to analgesic agent; Z88.5 Allergy status to narcotic agent; X50.9XXA Other and unspecified overexertion or strenuous movements or postures, initial encounter; Y93.89 Activity, other specified; Y92.89 Other specified places as the place of occurrence of the external cause; Y99.8 Other external cause status
CPT/HCPCS: 73610; 99283; L4350

== ENCOUNTER 2021-10-23 20:03 | Emergency (ER) | payer MEDICAID ==
[~2021-10-23] VITALS: Ht 154.9 cm; Wt 68.0 kg
[~2021-10-23 20:03] MED LIST changes: -CLIN150C14 PO; +CLIN150C16 PO
[2021-10-23 20:05] VITALS: BP 126/79
--- NOTE | 2021-10-23 20:45 | PHYS DOC ---
Past History Past Medical History: Anxiety, Asthma, COPD, Depression (YUDITH BARROS APRN) Past Surgical History: Cholecystectomy, , Hysterectomy, Lumbar Laminectomy, Tubal ligation (YUDITH BARROS APRN) Smoking: Cigarettes Alcohol Use: None Drug Use: Marijuana (YUDITH BARROS APRN) General Adult EDM: Chief Complaint: HIP PAIN HPI: HPI: Patient is a 40-year-old female that presents today with left hip pain. Patient states she has had left hip pain for the last couple of months and on October 102020 she had an L5-S1 surgery with Dr. Albert for radiculopathy pain to her left hip. She states she was given hydromorphone after the surgery on the she took a couple doses it caused her to break out she called the office and on October 16, 2021 on the [facility] it showed that a prescription for hydrocodone 60 tablets was called in and filled and sold. Patient states she never received the prescription she states she is having severe left hip pain she said it is the same pain that she was having prior to surgery. Patient is tearful very anxious, she has tried to call Dr. Albert's office on multiple occasions over the couple of days and she has not heard back from the office. Patient was approached with the fact that it showed that she did have prescriptions filled on the September and she states she admits to 10 October having a prescription but states that she did not receive the October 16 prescription. (YUDITH BARROS APRN) Review of Systems: Review of Systems: Constitutional: Denies fever or chills Eyes: Denies change in visual acuity HENT: Denies nasal congestion or sore throat Respiratory: Denies cough or shortness of breath Cardiovascular: Denies chest pain or edema GI: Denies abdominal pain, nausea, vomiting, bloody stools or diarrhea : Denies dysuria Musculoskeletal: Left hip pain Integument: Denies rash Neurologic: Denies headache, focal weakness or sensory changes Endocrine: Denies polyuria or polydipsia Lymphatic: Denies swollen glands Psychiatric: Denies depression or anxiety (YUDITH BARROS APRN) Allergies: Allergies: Allergies Coded Allergies Type Severity Reaction Last Updated Verified Penicillins Allergy Intermediate 08/24/20 Yes tramadol Allergy Unknown 08/24/20 Yes codeine Adverse Reaction Intermediate 08/24/20 Yes (YUDITH BARROS APRN) Physical Exam: PE: Constitutional: Well developed, well nourished, moderate distress, non-toxic appearance. [] HENT: Normocephalic, atraumatic, bilateral external ears normal, oropharynx moist, no oral exudates, nose normal. [] Eyes: PERRLA, EOMI, conjunctiva normal, no discharge. [] Neck: Normal range of motion, no tenderness, supple, no stridor. [] Cardiovascular:Heart rate regular rhythm, no murmur [] Lungs & Thorax: Bilateral breath sounds clear to auscultation [] Abdomen: Bowel sounds normal, soft, no tenderness, no masses, no pulsatile masses. [] Skin: Warm, dry, no erythema, no rash. [] Back: No tenderness, no CVA tenderness, well-healed midline incision over the L5-S1 noted Steri-Strips are in place no signs and symptoms of infection noted, there is an irritation noted around the prescription where a dressing was in place no signs and symptoms of infection noted there Extremities: No tenderness, no cyanosis, no clubbing, ROM intact, no edema, patient does have pain in her left buttock area along with her left hip area over the greater trochanter, no groin pain or numbness or tingling reported Neurologic: Alert and oriented X 3, normal motor function, normal sensory function, no focal deficits noted. [] Psychologic: Affect normal, judgement normal, mood anxious and crying. [] (YUDITH BARROS APRN) Current Patient Data: Vital Signs: Vital Signs Date Time Temp Pulse Resp B/P (MAP) Pulse Ox O2 Delivery O2 Flow Rate FiO2 10/23/21 21:00 18 97 Room Air 10/23/21 20:05 97.7 75 20 126/79 (95) 99 Room Air (YUDITH BARROS APRN) EKG: EKG: [] (YUDITH BARROS APRN) Radiology/Procedures: Radiology/Procedures: [] (YUDITH BARROS APRN) Heart Score: C/O Chest Pain: N/A (YUDITH BARROS APRN) Course & Med Decision Making: Course & Med Decision Making Pertinent Labs and Imaging studies reviewed. (See chart for details) Spoke to patient at length that there is not much the emergency department can do for her pain since it is more chronic in nature is being managed by her neurosurgeon. We will give patient 2 hydrocodone's while here in the department and instructed her to follow-up with Dr. Albert in the morning. Patient is agreeable to that plan is agreeable to taking the pain medication and going home and following up with Dr. Albert in the morning (YUDITH BARROS APRN) Dragon Disclaimer: Dragon Disclaimer: This electronic medical record was generated, in whole or in part, using a voice recognition dictation system. (YUDITH BARROS APRN) Departure Departure: Impression: Primary Impression: Left hip pain Disposition: HOME / SELF CARE / HOMELESS Condition: STABLE Referrals: KAVITHA KING MD (PCP) PADMINI ALBERT MD Patient Instructions: Hip Pain Additional Instructions: Follow-up with Dr. Albert in the morning Return to the emergency department if unable to walk due to inability to move left leg, having troubles going to the bathroom such as stooling and urinating. Attending Signature Attending Signature I have reviewed the PA/CRANBERRY GROWER's note and plan of care. I was available for consultation as needed during the patient's visit in the emergency department. I agree with the clinical impression, plan, and disposition. (KAREN FAYE DO) YUDITH BARROS APRN Oct 23, 2021 20:45 KAREN FAYE DO Oct 24, 2021 00:10
[2021-10-23] MEDS ORDERED: HYDROcodone/APAP 5/325MG 1 TAB TABLET PO ONE (21:00)
== END 2021-10-23 21:07 | disposition home or self-care (01) ==
LOC: ER 20:03
DX: M25.552 Pain in left hip (principal); J44.9 Chronic obstructive pulmonary disease, unspecified; F41.9 Anxiety disorder, unspecified; F17.210 Nicotine dependence, cigarettes, uncomplicated; Z88.0 Allergy status to penicillin; Z88.5 Allergy status to narcotic agent; Z88.6 Allergy status to analgesic agent
CPT/HCPCS: 99283

== ENCOUNTER 2022-04-23 21:00 | Emergency (ER) | payer MEDICAID ==
[~2022-04-23] VITALS: Ht 129.5 cm; Wt 62.4 kg
--- NOTE | 2022-04-23 21:04 | PHYS DOC ---
Past History Past Medical History: Anxiety, Asthma, COPD, Depression Additional Past Medical Histor: chronic low backpain, bulging disc Past Surgical History: Cholecystectomy, , Hysterectomy, Lumbar Laminectomy, Tubal ligation Additional Past Surgical Histo: L5S1 x 2 Smoking: Cigarettes Alcohol Use: None Drug Use: Marijuana Adult General HPI HPI Patient is 41-year-old female with a past medical history of anxiety and depression, that presents presents with a chief complaint of right thigh pain. Stated started about an hour ago she was just sitting there, started having a feeling that there was sand or some other piece of dirt in her eye. States it hurts 7 out of 10 with no radiation. States she is had some clear discharge as well. States she is never had anything like this before. Denies any changes in vision. Denies any numbness/weakness/tingling, confusion, slurred speech or facial droop. Denies any trouble sitting, standing or walking. Review of Systems Review of Systems Review of systems otherwise unremarkable except noted in HPI Allergies Allergies Allergies Coded Allergies Type Severity Reaction Last Updated Verified Penicillins Allergy Intermediate 08/24/20 Yes tramadol Allergy Unknown 08/24/20 Yes codeine Adverse Reaction Intermediate 08/24/20 Yes Physical Exam Physical Exam Constitutional: Well developed, well nourished, no acute distress, non-toxic appearance. [] HENT: Normocephalic, atraumatic, Eyes: PERRLA, EOMI, conjunctiva normal, no discharge, fluorescein exam showed uptake just inferior to the cornea, bilateral vision 20/25. [] Neck: Normal range of motion, no tenderness, supple, no stridor. [] Cardiovascular:Heart rate regular rhythm, no murmur [] Lungs & Thorax: No respiratory distress Neurologic: Alert and oriented X 3, normal motor function, normal sensory function, no focal deficits noted. [] Psychologic: Affect normal, judgement normal, mood normal. [] EKG EKG [] Radiology/Procedures Radiology/Procedures [] Heart Score C/O Chest Pain: No Risk Factors: Risk Factors: DM, Current or recent (<one month) smoker, HTN, HLP, family history of CAD, obesity. Risk Scores: Risk Factors: DM, Current or recent (<one month) smoker, HTN, HLP, family history of CAD, obesity. Course & Med Decision Making Course & Med Decision Making Patient is a 41-year-old female presents with right eye pain Vital signs nonconcerning. Physical exam noted above. Given medicine for pain. Tetracaine given. Fluorescein exam showed abrasion. Updated tetanus. Started on erythromycin eyedrops. Discussed symptom management at home. Advised to follow-up with eye doctor in the morning, patient states that she has an eye doctor she sees here in [place]. Gave return precautions to the ED. Patient grateful, verbalized understanding and agreed with plan of discharge. Dragon Disclaimer Dragon Disclaimer This electronic medical record was generated, in whole or in part, using a voice recognition dictation system. Departure Departure: Impression: Primary Impression: Corneal abrasion Disposition: HOME / SELF CARE / HOMELESS Condition: STABLE Referrals: KAVITHA KING MD (PCP) Patient Instructions: Eye - Corneal Abrasion Additional Instructions: Thank you for coming into the emergency department tonight and allowing us to take care of you. Please read all the attached information carefully to go over things we discussed. You can use Tylenol and ibuprofen at home as needed. You could also use ice. CHARLES ROSS MD April 23, 2022 21:04
[2022-04-23] MEDS ORDERED: FLUORESCEIN 1MG EYE STRIP. ONE (21:05)
[2022-04-23] MEDS ORDERED: ERYTHROMYCIN 0.5% OPHTH OINTMENT 1GM TUBE. ONE (21:25)
[2022-04-23] MEDS ORDERED: DIPHTH,PERTUSS(ACELL),TET TOX 0.5 ML DISP.SYRIN. VAX IM ONE (21:26)
[2022-04-23] MEDS ORDERED: MORPHINE SULFATE 10 MG/ML SYRINGE. ONE (21:26)
[2022-04-23] MEDS ORDERED: FLUORESCEIN 1MG EYE STRIP. OD ONE (21:30)
[2022-04-23] MEDS ORDERED: MORPHINE SULFATE 10 MG/ML SYRINGE. SQ ONE (21:30)
[2022-04-23] MEDS ORDERED: TETRACAINE 0.5% OPHTH SOLUTION 4ML BOTTLE. OD ONE (21:30)
[2022-04-23] MEDS ORDERED: ERYTHROMYCIN 0.5% OPHTH OINTMENT 1GM TUBE. OD ONE (22:00)
== END 2022-04-23 21:51 | disposition home or self-care (01) ==
LOC: ER 21:00
DX: S05.01XA Injury of conjunctiva and corneal abrasion without foreign body, right eye, initial encounter (principal); J44.9 Chronic obstructive pulmonary disease, unspecified; F17.210 Nicotine dependence, cigarettes, uncomplicated; Z88.0 Allergy status to penicillin; Z88.5 Allergy status to narcotic agent; Z88.8 Allergy status to other drugs, medicaments and biological substances; X58.XXXA Exposure to other specified factors, initial encounter; Y93.89 Activity, other specified; Y92.89 Other specified places as the place of occurrence of the external cause; Y99.8 Other external cause status
CPT/HCPCS: 96372; 99283; J2270